=== PATIENT | female | born 1945 | race Caucasian/White ===

== ENCOUNTER 2016-11-01 16:23 | Inpatient (IN) | payer BC, MEDICARE ==
[~2016-11-01] VITALS: Ht 160 cm; Wt 74.6 kg
[~2016-11-01 16:23] MED LIST: CIPR250T30 PO; LEVO25TA4 PO; PROAIR HFA8.5 GM INH; TRAM50TA PO
[2016-11-01 16:57] LABS: BASO % 0 % (0-3); EOS % 0 % (0-3); HEMATOCRIT 41.7 % (36.0-47.0); HEMOGLOBIN 13.7 g/dL (12.0-15.5); LYMPH # 0.9 x10^3/uL (1.0-4.8); LYMPH % 4 % (24-48); MEAN CORPUSCULAR HEMOGLOBIN 29 pg (25-35); MEAN CORPUSCULAR HGB CONC 33 g/dL (31-37); MEAN CORPUSCULAR VOLUME 87 fL (79-100); MONO % 7 % (0-9); NEUT % 89 % (31-73); PLATELET COUNT 213 x10^3/uL (140-400); RED BLOOD COUNT 4.81 x10^6/uL (3.50-5.40); RED CELL DISTRIBUTION WIDTH 14.4 % (11.5-14.5); WHITE BLOOD COUNT 23.8 x10^3/uL (4.0-11.0)
[2016-11-01] MEDS ORDERED: IPRATRPIUM/ALBUTEROL 0.5/2.5MG 3 ML NEBU. NEB ONE (17:00)
[2016-11-01] MEDS ORDERED: ONDANSETRON PF 4 MG/2 ML VIAL. IV ONE (17:00)
[2016-11-01] MEDS ORDERED: IV NORMAL SALINE 1000ML BAG 1,000 ML IV ONE (17:00)
[2016-11-01] MEDS ORDERED: fentaNYL PF VIAL 100 MCG/2 ML VIAL IV ONE (17:00)
[2016-11-01 17:05] LABS: PROTHROMBIN TIME PATIENT 12.5 SEC (11.7-14.0)
[2016-11-01 17:14] LABS: CALCIUM 9.3 mg/dL (8.5-10.1); CREATININE 1.1 mg/dL (0.6-1.0); GFR 48.7; POTASSIUM 4.2 mmol/L (3.5-5.1)
[2016-11-01 17:20] LABS: ALBUMIN 4.1 g/dL (3.4-5.0); ALBUMIN/GLOBULIN RATIO 1.2 (1.0-1.7); MAGNESIUM 1.7 mg/dL (1.8-2.4); TOTAL BILIRUBIN 0.4 mg/dL (0.2-1.0); TOTAL PROTEIN 7.4 g/dL (6.4-8.2)
--- NOTE | 2016-11-01 18:43 | PHYS DOC ---
Past Medical History Past Medical History: Anemia, Bronchitis, COPD, Fibromyalgia, Hypothyroid, Unknown Additional Past Medical Histor: RDS, restless leg Past Surgical History: Hysterectomy, Tubal ligation, Other Additional Past Surgical Histo: Bladder sling, R ear x5, R elbow, L arm, L foot Alcohol Use: None Drug Use: None Adult General Chief Complaint Chief Complaint: NAUSEA/VOMITING/DIARRHA HPI HPI Patient is a 71 year old female presenting to the emergency department for evaluation of nausea vomiting and diarrhea that started earlier today. She is currently being treated for orchitis with antibiotics but she does not know which antibiotics for the past 4-5 days. She says that she was switched to a new antibiotic today and shortly after taking the new antibiotic is when the symptoms started. She denies any fevers chills shortness of breath or productive cough dysuria. Patient appears uncomfortable but she is in no obvious distress with normal vital signs except for her tachycardia at 110. Review of Systems Review of Systems Constitutional: Denies fever or chills [] Eyes: Denies change in visual acuity, redness, or eye pain [] HENT: + nasal congestion and sore throat [] Respiratory: Denies cough or shortness of breath [] Cardiovascular: No additional information not addressed in HPI [] GI: Denies abdominal pain. + nausea, vomiting, diarrhea [] : Denies dysuria or hematuria [] Musculoskeletal: Denies back pain or joint pain [] Integument: Denies rash or skin lesions [] Neurologic: Denies headache, focal weakness or sensory changes [] Current Medications Current Medications Current Medications Medications (Trade) Dose Ordered Sig/[facility] Start Time Stop Time Status Last Admin Dose Admin Albuterol/ Ipratropium (Duoneb) 3 ml 1X ONCE 11/01/16 17:00 11/01/16 17:01 DC Fentanyl Citrate (Fentanyl 2ml Vial) 50 mcg PRN Q2HR PRN 11/01/16 19:45 11/02/16 19:44 Levofloxacin/ Dextrose 100 ml @ 100 mls/hr 1X ONCE 11/01/16 20:00 11/01/16 20:59 DC Metronidazole 100 ml @ 100 mls/hr 1X ONCE 11/01/16 20:00 11/01/16 20:59 DC Ondansetron HCl (Zofran) 4 mg PRN Q8HRS PRN 11/01/16 19:45 11/02/16 19:44 Piperacillin Sod/ Tazobactam Sod 3.375 gm/Sodium Chloride 50 ml @ 100 mls/hr 1X ONCE 11/02/16 01:00 11/02/16 01:29 Potassium Chloride/Dextrose/ Sod Cl 1,000 ml @ 125 mls/hr 1X ONCE 11/01/16 20:30 11/02/16 04:29 Sodium Chloride 1,000 ml @ 1,000 mls/hr 1X ONCE 11/01/16 17:00 11/01/16 17:59 DC 11/01/16 17:09 1,000 MLS/HR Allergies Allergies Allergies Coded Allergies Type Severity Reaction Last Updated Verified oxycodone Adverse Reaction Severe Nausea and Vomiting 12/07/15 Yes Iodinated Contrast Media - IV Dye Adverse Reaction Intermediate Nausea and Vomiting 12/07/15 Yes Physical Exam Physical Exam Constitutional: Well developed, well nourished, no acute distress, non-toxic appearance. [] HENT: Normocephalic, atraumatic, bilateral external ears normal, oropharynx moist, no oral exudates, nose normal. [] Eyes: PERRLA, EOMI, conjunctiva normal, no discharge. [] Neck: Normal range of motion, no tenderness, supple, no stridor. [] Cardiovascular:Heart rate tachycardic with regular rhythm, no murmur [] Lungs & Thorax: Bilateral breath sounds clear to auscultation [] Abdomen: Bowel sounds normal, soft, no tenderness, no masses, no pulsatile masses. [] Skin: Warm, dry, no erythema, no rash. [] Back: No tenderness, no CVA tenderness. [] Extremities: No tenderness, no cyanosis, no clubbing, ROM intact, no edema. [] Neurologic: Alert and oriented X 3, normal motor function, normal sensory function, no focal deficits noted. [] Current Patient Data Vital Signs Vital Signs Date Time Temp Pulse Resp B/P (MAP) Pulse Ox O2 Delivery O2 Flow Rate FiO2 11/01/16 18:30 106 28 110/66 (81) 94 11/01/16 17:51 Room Air 11/01/16 16:25 98.4 98.4 Lab Values Laboratory Tests Test 11/01/16 16:45 White Blood Count 23.8 x10^3/uL (4.0-11.0) H Red Blood Count 4.81 x10^6/uL (3.50-5.40) Hemoglobin 13.7 g/dL (12.0-15.5) Hematocrit 41.7 % (36.0-47.0) Mean Corpuscular Volume 87 fL (79-100) Mean Corpuscular Hemoglobin 29 pg (25-35) Mean Corpuscular Hemoglobin Concent 33 g/dL (31-37) Red Cell Distribution Width 14.4 % (11.5-14.5) Platelet Count 213 x10^3/uL (140-400) Neutrophils (%) (Auto) 89 % (31-73) H Lymphocytes (%) (Auto) 4 % (24-48) L Monocytes (%) (Auto) 7 % (0-9) Eosinophils (%) (Auto) 0 % (0-3) Basophils (%) (Auto) 0 % (0-3) Neutrophils # (Auto) 21.2 x10^3uL (1.8-7.7) H Lymphocytes # (Auto) 0.9 x10^3/uL (1.0-4.8) L Monocytes # (Auto) 1.6 x10^3/uL (0.0-1.1) H Eosinophils # (Auto) 0.0 x10^3/uL (0.0-0.7) Basophils # (Auto) 0.0 x10^3/uL (0.0-0.2) Segmented Neutrophils % 58 % (35-66) Band Neutrophils % 29 % (0-9) H Lymphocytes % 7 % (24-48) L Monocytes % 6 % (0-10) Platelet Estimate Adequate (ADEQUATE) Prothrombin Time 12.5 SEC (11.7-14.0) Prothrombin Time INR 1.0 (0.8-1.1) PTT 24 SEC (24-38) Sodium Level 137 mmol/L (136-145) Potassium Level 4.2 mmol/L (3.5-5.1) Chloride Level 102 mmol/L (98-107) Carbon Dioxide Level 27 mmol/L (21-32) Anion Gap 8 (6-14) Blood Urea Nitrogen 15 mg/dL (7-20) Creatinine 1.1 mg/dL (0.6-1.0) H Estimated GFR (Cockcroft-Gault) 48.7 BUN/Creatinine Ratio 14 (6-20) Glucose Level 143 mg/dL (70-99) H Calcium Level 9.3 mg/dL (8.5-10.1) Magnesium Level 1.7 mg/dL (1.8-2.4) L Total Bilirubin 0.4 mg/dL (0.2-1.0) Aspartate Amino Transferase (AST) 43 U/L (15-37) H Alanine Aminotransferase (ALT) 41 U/L (14-59) Alkaline Phosphatase 111 U/L (46-116) Creatine Kinase 156 U/L (26-192) Troponin I Quantitative < 0.017 ng/mL (0.000-0.055) NJ-Lmx-C-Type Natriuretic Peptide 67 pg/mL (0-124) Total Protein 7.4 g/dL (6.4-8.2) Albumin 4.1 g/dL (3.4-5.0) Albumin/Globulin Ratio 1.2 (1.0-1.7) Lipase 225 U/L (73-393) Ethyl Alcohol Level < 10 mg/dL (0-10) Laboratory Tests 11/01/16 16:45 Laboratory Tests 11/01/16 16:45 Radiology/Procedures Radiology/Procedures PROCEDURE CT abdomen and pelvis without contrast HISTORY Generalized abdominal pain TECHNIQUE Exposure: One or more of the following individualized dose reduction techniques were utilized for this exam: 1. Automated exposure control. 2. Adjustment of the mA and/or kV according to patient size. 3. Use of iterative reconstruction technique. Helical noncontrast CT imaging of the abdomen and pelvis was acquired COMPARISON CT abdomen and pelvis March 03, 2013 FINDINGS Abdomen: Pulmonary emphysema lung bases. 3 millimeter right middle lobe nodule image 2 outside the field of view prior study. 2 millimeter nodule right middle lobe image 6 new from the prior exam. 3 millimeter right middle lobe nodule image 7 is stable. Hypodensity of the liver could be fatty. Mild distended renal pelves decreased on the prior exam. No nephroureterolithiasis. Adrenals, pancreas, spleen and gallbladder are unremarkable. No bowel obstruction or inflammation. 2 centimeter fatty density of the distal ileum at the pelvis likely a lipoma. Appendix is negative. Aorta and iliac artery calcified plaque. No abdominal fluid. Bones unremarkable. Pelvis: Hysterectomy small nodular density the vaginal cuff is stable abdominal significance given stability. Bladder, rectum and bones are unremarkable. No pelvic fluid. IMPRESSION 1. No acute process. 2. Small right middle lobe pulmonary nodules largest measuring 3 millimeters new from the prior exam. In a low risk patient no followup is needed, in a high risk patient follow-up CT chest in 12 months would be advised per Fleischner society guidelines. Electronically signed by: Trixie Mccann MD (November 01, 2016 20:57:40) DICTATED and SIGNED BY: TRIXIE MCCANN MD DATE: 11/01/162056 Course & Med Decision Making Course & Med Decision Making Patient with significantly elevated white blood cell count and bandemia and she is tachycardic sweating which she meets sepsis criteria. Worse is unclear at this time but she does have some abdominal pain on repeat exam in her epigastrium such she will get CT abdomen and pelvis. Her lung fluids and broad- spectrum antibiotics including Levaquin and Flagyl. Patient will be admitted in stable condition for further observation and treatment. Dragon Disclaimer Dragon Disclaimer This electronic medical record was generated, in whole or in part, using a voice recognition dictation system. Departure Departure Impression: Primary Impression: Sepsis Additional Impressions: Bandemia Gastroenteritis Disposition: ADMITTED INPATIENT Admitting Physician: Syed Mo Condition: IMPROVED Referrals: FLOYD FUNEZ MD (PCP) Problem Qualifiers SABRINA ZAMORA DO November 01, 2016 18:43
[2016-11-01 19:11] LABS: PLT ESTIMATE ADEQUATE (ADEQUATE)
[2016-11-01] MEDS ORDERED: ONDANSETRON PF 4 MG/2 ML VIAL. IV PRN (19:45)
[2016-11-01] MEDS ORDERED: POTASSIUM CL 20MEQ D5-0.45NACL 1,000 ML IV ONE (20:30)
--- NOTE | 2016-11-01 20:59 | RAD ---
PROCEDURE CT abdomen and pelvis without contrast HISTORY Generalized abdominal pain TECHNIQUE Exposure: One or more of the following individualized dose reduction techniques were utilized for this exam: 1. Automated exposure control. 2. Adjustment of the mA and/or kV according to patient size. 3. Use of iterative reconstruction technique. Helical noncontrast CT imaging of the abdomen and pelvis was acquired COMPARISON CT abdomen and pelvis March 03, 2013 FINDINGS Abdomen: Pulmonary emphysema lung bases. 3 millimeter right middle lobe nodule image 2 outside the field of view prior study. 2 millimeter nodule right middle lobe image 6 new from the prior exam. 3 millimeter right middle lobe nodule image 7 is stable. Hypodensity of the liver could be fatty. Mild distended renal pelves decreased on the prior exam. No nephroureterolithiasis. Adrenals, pancreas, spleen and gallbladder are unremarkable. No bowel obstruction or inflammation. 2 centimeter fatty density of the distal ileum at the pelvis likely a lipoma. Appendix is negative. Aorta and iliac artery calcified plaque. No abdominal fluid. Bones unremarkable. Pelvis: Hysterectomy small nodular density the vaginal cuff is stable abdominal significance given stability. Bladder, rectum and bones are unremarkable. No pelvic fluid. IMPRESSION 1. No acute process. 2. Small right middle lobe pulmonary nodules largest measuring 3 millimeters new from the prior exam. In a low risk patient no followup is needed, in a high risk patient follow-up CT chest in 12 months would be advised per Fleischner society guidelines. Electronically signed by: James Mccann MD (November 01, 2016 20:57:40)
--- NOTE | 2016-11-01 21:24 | ACF ---
Admission Forms Criteria SEPSIS and OTHER FEBRILE ILLNESS, W/O FOCAL INFECTION Clinical Indications for Admission to Inpatient Care ( Place 'X' for any and all applicable criteria): Admission is indicated for ANY ONE of the following (1)(2)(3)(4): [ ] I. Bacteremia [X]II. Suspected or identified specific infection requiring hospitalization (eg, meningitis, endocarditis) [ ]III. Hemodynamic instability [ ]IV. Altered mental status [ ]V. Failure or unavailability of outpatient antimicrobial treatment [ ]. Hypoxemia [ ]VII. Seizures [ ]VIII. High-risk febrile neutropenia [ ]IX. Need for parenteral antibiotic in patient who is likely to abuse vascular access device (eg, injection drug user) [A](7) [ ]X. Temperature greater than 104.9 degrees F (40.5 degrees C) (oral) [ ]XI. Inpatient admission required rather than observation care because of ANY ONE of the following: [ ]1) Specific infection identified that is too severe for outpatient treatment or observation care trial [ ]2) Metabolic disorder (eg, hypoglycemia, hyperglycemia, metabolic acidosis) that is severe or persistent [ ]3) Temperature greater than 103.1 degrees F (39.5 degrees C) ( oral) that is not responsive to observation care treatment [ ]4) IV fluid to replace significant ongoing (eg, for over 24 hours) losses (> 3 L/m2 per day) [ ]5) Supplemental oxygen or respiratory treatments for over 24 hours that is performable only in acute inpatient setting [ ]6) Parenteral nutrition regimen need that must be implemented on inpatient basis [ ]7) Strict or protective (eg, laminar flow) isolation [ ]8) Other condition, treatment or monitoring requiring inpatient admission Extended stay beyond goal length of stay may be needed for(1)(3) [ ]a) Sepsis or septic shock(22) [ ]b) Positive blood cultures [ ]c) Insufficient oral intake [ ]d) High-risk febrile neutropenia(29)(30) [ ]e) Continued fever and clinical instability [ ]f) Clinically active comorbid illness (e.g,heart failure, renal failure , diabetes) The original [employer] content created by [employer] has been revised. The portions of the content which have been revised are identified through the use of italic text or in bold, and [employer] has neither reviewed nor approved the modified material. All other unmodified content is copyright [facility]. Please see references footnoted in the original [facility] edition 2016 Admission Criteria Met?: Yes MIKE COOK November 01, 2016 21:24
[2016-11-01] MEDS: fentaNYL PF VIAL 100 MCG/2 ML VIAL IV PRN (21:58)
[2016-11-01 23:00] VITALS: BP 115/58
[2016-11-02] VITALS (7 sets, daily range): BP systolic 106–132; BP diastolic 54–79
[2016-11-02] MEDS ORDERED: ONDANSETRON PF 4 MG/2 ML VIAL. IV PRN (00:30)
[2016-11-02] MEDS ORDERED: hydrALAZINE 20 MG/ML VIAL. IVP PRN (00:30)
[2016-11-02] MEDS ORDERED: ALBUTEROL SULFATE 2.5 MG/3 ML NEBU. NEB PRN (00:30)
[2016-11-02] MEDS ORDERED: ACETAMINOPHEN 325 MG TABLET. PO PRN (00:30)
[2016-11-02] MEDS ORDERED: PIPERACILLIN/TAZOBACTAM 3.375 GM in IV NORMAL SALINE 50ML 50 ML IV ONE (01:00)
[2016-11-02] MEDS: fentaNYL PF VIAL 100 MCG/2 ML VIAL IV PRN ×2 (01:23→10:02)
--- NOTE | 2016-11-02 09:42 | RAD ---
Exam performed: One view chest. Indication: COUGH, SOA Date of Service: 11/01/2016 6:42 PM Comparison: None available. Single AP upright portable view chest findings: Cardiomediastinal silhouette is within limits of normal. No acute infiltrates, effusion or pneumothorax is detected. The bony structures are normal. Impression: No acute cardiopulmonary process is detected.
--- NOTE | 2016-11-02 10:46 | PDOC ---
Infectious Disease Note ROS ROS GEN: Denies fevers, chills, sweats HEENT: Denies blurred vision, sore throat CV: Denies chest pain RESP: Denies shortness of air, cough GI: Denies n/v/d NEURO: Denies confusion, dizziness MSK: Denies weakness, joint pain/swelling Vital Sign Vital Signs Vital Signs Date Time Temp Pulse Resp B/P (MAP) Pulse Ox O2 Delivery O2 Flow Rate FiO2 11/02/16 10:02 20 96 Room Air 11/02/16 07:00 96.8 83 106/63 (77) 96.8 Physical Exam PHYSICAL EXAM GENERAL: NAD, Alert HEENT: PERRL, OC/OP NECK: Supple, no JVD, no LN LUNGS: Clear HEART: S1S2, no gallop, no murmur ABD: Soft, NT, no organomegaly, no rebound EXT: No edema, no cyanosis [employer]: Alert, oriented x 3, no focal neurologic deficit SKIN: No rash IV: ok Labs Lab Laboratory Tests Test 11/01/16 16:45 White Blood Count 23.8 x10^3/uL (4.0-11.0) Red Blood Count 4.81 x10^6/uL (3.50-5.40) Hemoglobin 13.7 g/dL (12.0-15.5) Hematocrit 41.7 % (36.0-47.0) Mean Corpuscular Volume 87 fL (79-100) Mean Corpuscular Hemoglobin 29 pg (25-35) Mean Corpuscular Hemoglobin Concent 33 g/dL (31-37) Red Cell Distribution Width 14.4 % (11.5-14.5) Platelet Count 213 x10^3/uL (140-400) Neutrophils (%) (Auto) 89 % (31-73) Lymphocytes (%) (Auto) 4 % (24-48) Monocytes (%) (Auto) 7 % (0-9) Eosinophils (%) (Auto) 0 % (0-3) Basophils (%) (Auto) 0 % (0-3) Neutrophils # (Auto) 21.2 x10^3uL (1.8-7.7) Lymphocytes # (Auto) 0.9 x10^3/uL (1.0-4.8) Monocytes # (Auto) 1.6 x10^3/uL (0.0-1.1) Eosinophils # (Auto) 0.0 x10^3/uL (0.0-0.7) Basophils # (Auto) 0.0 x10^3/uL (0.0-0.2) Segmented Neutrophils % 58 % (35-66) Band Neutrophils % 29 % (0-9) Lymphocytes % 7 % (24-48) Monocytes % 6 % (0-10) Platelet Estimate Adequate (ADEQUATE) Prothrombin Time 12.5 SEC (11.7-14.0) Prothromb Time International Ratio 1.0 (0.8-1.1) Activated Partial Thromboplast Time 24 SEC (24-38) Sodium Level 137 mmol/L (136-145) Potassium Level 4.2 mmol/L (3.5-5.1) Chloride Level 102 mmol/L (98-107) Carbon Dioxide Level 27 mmol/L (21-32) Anion Gap 8 (6-14) Blood Urea Nitrogen 15 mg/dL (7-20) Creatinine 1.1 mg/dL (0.6-1.0) Estimated GFR (Cockcroft-Gault) 48.7 BUN/Creatinine Ratio 14 (6-20) Glucose Level 143 mg/dL (70-99) Calcium Level 9.3 mg/dL (8.5-10.1) Magnesium Level 1.7 mg/dL (1.8-2.4) Total Bilirubin 0.4 mg/dL (0.2-1.0) Aspartate Amino Transf (AST/SGOT) 43 U/L (15-37) Alanine Aminotransferase (ALT/SGPT) 41 U/L (14-59) Alkaline Phosphatase 111 U/L (46-116) Creatine Kinase 156 U/L (26-192) Troponin I Quantitative < 0.017 ng/mL (0.000-0.055) WV-Jnp-J-Type Natriuretic Peptide 67 pg/mL (0-124) Total Protein 7.4 g/dL (6.4-8.2) Albumin 4.1 g/dL (3.4-5.0) Albumin/Globulin Ratio 1.2 (1.0-1.7) Lipase 225 U/L (73-393) Ethyl Alcohol Level < 10 mg/dL (0-10) Objective Assessment N/V/D - likely C-diff given abx exposure. No bloody stools - no outside food Leukocytosis New lung nodules Tobacco abuse Plan Plan of Care F/u C-diff Begin po Vanc Probitoics F/u labs and cults Lung nodules per primary Thank you # [phone] ANTIONETTE ARTEAGA MD November 02, 2016 10:45
[2016-11-02] MEDS ORDERED: NON FORMULARY ITEM (Albuterol Sulfate (Proair Hfa Inhaler) 1 PUFF) INH PRN (11:15)
[2016-11-02] MEDS ORDERED: HYDROcodone/APAP 5/325MG 1 TAB TABLET PO PRN (11:15)
[2016-11-02] MEDS: VANCOMYCIN 125 MG/2.5 ML ORAL SOLUTION. PO SCH ×4 (11:16→20:58)
[2016-11-02] MEDS: LACTOBACILLUS ACIDOPH & BULGAR 1 TABLET. PO SCH ×2 (11:16→18:54)
[2016-11-02 11:28] LABS: BILIRUBIN,URINE NEGATIVE (NEG); GLUCOSE,URINE NEGATIVE (NEG); NITRITE,URINE NEGATIVE (NEG); PH,URINE 5.5; PROTEIN,URINE NEGATIVE (NEG-TRACE); UROBILINOGEN,URINE 0.2 mg/dL (0.2 mg/dL)
--- NOTE | 2016-11-02 11:32 | PDOC1 ---
History and Physical Date of Admission Date of Admission DATE: 11/02/16 TIME: 11:26 Identification/Chief Complaint Chief Complaint diarrhea Problems: Source Source: Chart review, Patient History of Present Illness History of Present Illness Ms. Alatorre, is a 71 year old female admit nausea vomiting and diarrhea. 24 hours, and symptoms now improved this AM from last night Had been given Cipro for bronchitis, about 5 days, but still coughing, she is now worried about mold exposure in her [facility] She stopped smoking 2 weeks ago due to cough and dyspnea PCP is Dr. Berger cough and dyspnea persist, she is hungry this AM Past Medical History Cardiovascular: HTN Pulmonary: Asthma Rheumatologic: No pertinent hx ENT: No pertinent hx Renal/: No pertinent hx Family History Family History: No Significant Social History Smoke: 1 pack per day ALCOHOL: rare Current Problem List Problem List Problems Medical Problems: (1) Bandemia Status: Acute (2) Gastroenteritis Status: Acute (3) Sepsis Status: Acute Problems: Current Medications Current Medications Current Medications Sodium Chloride 1,000 ml @ 1,000 mls/hr 1X ONCE IV Last administered on 17:09; Start 11/01/16 at 17:00; Stop 11/01/16 at 17:59; Status DC Albuterol/ Ipratropium (Duoneb) 3 ml 1X ONCE NEB ; Start 11/01/16 at 17:00; Stop 11/01/16 at 17:01; Status DC Ondansetron HCl (Zofran) 4 mg 1X ONCE IV Last administered on 11/01/16 17:09 ; Start 11/01/16 at 17:00; Stop 11/01/16 at 17:01; Status DC Fentanyl Citrate (Fentanyl 2ml Vial) 75 mcg 1X ONCE IV Last administered on 17:10; Start 11/01/16 at 17:00; Stop 11/01/16 at 17:01; Status DC Levofloxacin/ Dextrose 100 ml @ 100 mls/hr 1X ONCE IV Last administered on 21:51; Start 11/01/16 at 20:00; Stop 11/01/16 at 20:59; Status DC Metronidazole 100 ml @ 100 mls/hr 1X ONCE IV Last administered on 11/01/16 21:07; Start 11/01/16 at 20:00; Stop 11/01/16 at 20:59; Status DC Ondansetron HCl (Zofran) 4 mg PRN Q8HRS PRN IV NAUSEA/VOMITING Last administered on 11/02/16 01:22; Start 11/01/16 at 19:45; Stop 11/02/16 at 02:16 ; Status DC Fentanyl Citrate (Fentanyl 2ml Vial) 50 mcg PRN Q2HR PRN IV PAIN Last administered on 11/02/16 10:02; Start 11/01/16 at 19:45; Stop 11/02/16 at 19:44 Potassium Chloride/Dextrose/ Sod Cl 1,000 ml @ 125 mls/hr 1X ONCE IV Last administered on 11/02/16 00:39; Start 11/01/16 at 20:30; Stop 11/02/16 at 04:29 ; Status DC Piperacillin Sod/ Tazobactam Sod 3.375 gm/Sodium Chloride 50 ml @ 100 mls/hr 1X ONCE IV Last administered on 11/01/16 21:03; Start 11/02/16 at 01:00; Stop 11/02/16 at 02:07; Status DC Acetaminophen (Tylenol) 325 mg PRN Q6HRS PRN PO MILD PAIN / TEMP Last administered on 11/02/16 10:02; Start 11/02/16 at 00:30 Hydralazine HCl (Apresoline) 10 mg PRN Q4HRS PRN IVP ELEVATED BP, SEE COMMENTS ; Start 11/02/16 at 00:30 Ondansetron HCl (Zofran) 4 mg PRN Q8HRS PRN IV NAUSEA/VOMITING; Start 11/02/16 at 00:30 Albuterol Sulfate (Ventolin Neb Soln) 2.5 mg PRN Q4HRS PRN NEB SHORTNESS OF BREATH; Start 11/02/16 at 00:30 Vancomycin HCl 125 mg [id number] PO Last administered on 11/02/16 11:16; Start at 11:00 Lactobacillus Acidophilus (Bacid, Franchesca-Bid) 1 tab TIDWMEALS PO Last administered on 11/02/16 11:16; Start 11/02/16 at 12:00 Acetaminophen/ Hydrocodone Bitart (Lortab 5/325) 1 tab PRN Q4HRS PRN PO PAIN; Start 11/02/16 at 11:15 Ciprofloxacin (Cipro) 250 mg BID PO ; Start 11/02/16 at 21:00; Stop 11/02/16 at 21:00; Status DC Levothyroxine Sodium (Synthroid) 25 mcg DAILY06 PO ; Start 11/02/16 at 11:30 Tramadol HCl (Ultram) 50 mg BID PO ; Start 11/02/16 at 11:30 Non-Formulary Medication 1 puff PRN Q6HRS PRN INH SHORTNESS OF BREATH; Start at 11:15; Status UNV Levofloxacin (Levaquin) 750 mg DAILY06 PO ; Start 11/03/16 at 06:00; Status UNV Levofloxacin (Levaquin) 750 mg 1X ONCE PO ; Start 11/02/16 at 11:30; Stop 11/02 at 11:31; Status UNV Active Scripts Active Reported Cipro (Ciprofloxacin Hcl) 250 Mg Tablet 1 Tab PO BID Proair Hfa Inhaler (Albuterol Sulfate) 8.5 Gm Hfa.aer.ad 1 Puff INH PRN Q6HRS PRN Tramadol Hcl 50 Mg Tablet 1 Tab PO BID Levothyroxine Sodium 25 Mcg Tablet 1 Tab PO DAILY Allergies Allergies: Coded Allergies: oxycodone (Verified Adverse Reaction, Severe, Nausea and Vomiting, 12/07/15 ) Iodinated Contrast Media - IV Dye (Verified Adverse Reaction, Intermediate , Nausea and Vomiting, 12/07/15) ROS General: YES: Malaise, No: Chills, Night Sweats, Fatigue, Appetite, Other PSYCHOLOGICAL ROS: YES: Sleep disturbances, No: Anxiety, Behavioral Disorder, Concentration difficultie, Decreased libido , Depression, Disorientation, Hallucinations, Hostility, Irritablity, Memory difficulties, Mood Swings, Obsessive thoughts, Suicidal ideation, Other Eyes: No Blurry vision, No Decreased vision, No Double vision, No Dry eyes, No Eye Pain, No Itchy Eyes, No Loss of vision, No Photophobia, No Scotomata, No Uses contacts, No Uses glasses, No Other HEENT: YES: Heacaches, No: Visual Changes, Hearing change, Nasal congestion, Nasal discharge, Oral lesions, Sinus pain, Sore Throat, Epistaxis, Sneezing, Snoring, Tinnitus, Vertigo, Vocal changes, Other Respiratory: YES: Cough, SOB with excertion Cardiovascular: No Chest Pain, No Palpitations, No Orthopnea, No Paroxysmal Noc. Dyspnea, No Edema, No Lt Headedness, No Other Gastrointestinal: Yes Nausea, Yes Vomiting, Yes Diarrhea, No Abdominal Pain, No Constipation, No Melena, No Hematochezia, No Other Genitourinary: No Dysuria, No Frequency, No Incontinence, No Hematuria, No Retention, No Discharge, No Urgency, No Pain, No Flank Pain, No Other, No , No , No , No , No , No , No Musculoskeletal: Yes Joint Pain, No Gait Disturbance, No Joint Stiffness, No Joint Swelling, No Muscle Pain, No Muscular Weakness, No Pain In:, No Swelling In:, No Other Neurological: No Behavorial Changes, No Bowel/Bladder ControlChng, No Confusion , No Dizziness, No Gait Disturbance, No Headaches, No Impaired Coord/balance, No Memory Loss, No Numbness/Tingling, No Seizures, No Speech Problems, No Tremors, No Visual Changes, No Weakness, No Other Skin: No Dry Skin, No Eczema, No Hair Changes, No Lumps, No Mole Changes, No Mottling, No Nail Changes, No Pruritus, No Rash, No Skin Lesion Changes, No Other, No Acne Physical Exam General: Alert, Oriented X3, Cooperative, No acute distress HEENT: Atraumatic, PERRLA, EOMI Lungs: Other (limit volume, dull bases, end rales, no wheeze) Heart: S1S2, no murmurs Abdomen: Normal bowel sounds, Soft Rectal Exam: not examined Extremities: No clubbing, No edema Skin: No rashes Neuro: Normal speech, Normal tone, Cranial nerves 3-12 NL Psych/Mental Status: Mental status NL Vitals Vitals Vital Signs Date Time Temp Pulse Resp B/P (MAP) Pulse Ox O2 Delivery O2 Flow Rate FiO2 11/02/16 10:02 20 96 Room Air 11/02/16 07:00 96.8 83 106/63 (77) 96.8 Labs Labs Laboratory Tests Test 11/01/16 16:45 White Blood Count 23.8 x10^3/uL (4.0-11.0) Red Blood Count 4.81 x10^6/uL (3.50-5.40) Hemoglobin 13.7 g/dL (12.0-15.5) Hematocrit 41.7 % (36.0-47.0) Mean Corpuscular Volume 87 fL (79-100) Mean Corpuscular Hemoglobin 29 pg (25-35) Mean Corpuscular Hemoglobin Concent 33 g/dL (31-37) Red Cell Distribution Width 14.4 % (11.5-14.5) Platelet Count 213 x10^3/uL (140-400) Neutrophils (%) (Auto) 89 % (31-73) Lymphocytes (%) (Auto) 4 % (24-48) Monocytes (%) (Auto) 7 % (0-9) Eosinophils (%) (Auto) 0 % (0-3) Basophils (%) (Auto) 0 % (0-3) Neutrophils # (Auto) 21.2 x10^3uL (1.8-7.7) Lymphocytes # (Auto) 0.9 x10^3/uL (1.0-4.8) Monocytes # (Auto) 1.6 x10^3/uL (0.0-1.1) Eosinophils # (Auto) 0.0 x10^3/uL (0.0-0.7) Basophils # (Auto) 0.0 x10^3/uL (0.0-0.2) Segmented Neutrophils % 58 % (35-66) Band Neutrophils % 29 % (0-9) Lymphocytes % 7 % (24-48) Monocytes % 6 % (0-10) Platelet Estimate Adequate (ADEQUATE) Prothrombin Time 12.5 SEC (11.7-14.0) Prothromb Time International Ratio 1.0 (0.8-1.1) Activated Partial Thromboplast Time 24 SEC (24-38) Sodium Level 137 mmol/L (136-145) Potassium Level 4.2 mmol/L (3.5-5.1) Chloride Level 102 mmol/L (98-107) Carbon Dioxide Level 27 mmol/L (21-32) Anion Gap 8 (6-14) Blood Urea Nitrogen 15 mg/dL (7-20) Creatinine 1.1 mg/dL (0.6-1.0) Estimated GFR (Cockcroft-Gault) 48.7 BUN/Creatinine Ratio 14 (6-20) Glucose Level 143 mg/dL (70-99) Calcium Level 9.3 mg/dL (8.5-10.1) Magnesium Level 1.7 mg/dL (1.8-2.4) Total Bilirubin 0.4 mg/dL (0.2-1.0) Aspartate Amino Transf (AST/SGOT) 43 U/L (15-37) Alanine Aminotransferase (ALT/SGPT) 41 U/L (14-59) Alkaline Phosphatase 111 U/L (46-116) Creatine Kinase 156 U/L (26-192) Troponin I Quantitative < 0.017 ng/mL (0.000-0.055) YR-Tml-S-Type Natriuretic Peptide 67 pg/mL (0-124) Total Protein 7.4 g/dL (6.4-8.2) Albumin 4.1 g/dL (3.4-5.0) Albumin/Globulin Ratio 1.2 (1.0-1.7) Lipase 225 U/L (73-393) Ethyl Alcohol Level < 10 mg/dL (0-10) Laboratory Tests Test 11/01/16 16:45 White Blood Count 23.8 x10^3/uL (4.0-11.0) Red Blood Count 4.81 x10^6/uL (3.50-5.40) Hemoglobin 13.7 g/dL (12.0-15.5) Hematocrit 41.7 % (36.0-47.0) Mean Corpuscular Volume 87 fL (79-100) Mean Corpuscular Hemoglobin 29 pg (25-35) Mean Corpuscular Hemoglobin Concent 33 g/dL (31-37) Red Cell Distribution Width 14.4 % (11.5-14.5) Platelet Count 213 x10^3/uL (140-400) Neutrophils (%) (Auto) 89 % (31-73) Lymphocytes (%) (Auto) 4 % (24-48) Monocytes (%) (Auto) 7 % (0-9) Eosinophils (%) (Auto) 0 % (0-3) Basophils (%) (Auto) 0 % (0-3) Neutrophils # (Auto) 21.2 x10^3uL (1.8-7.7) Lymphocytes # (Auto) 0.9 x10^3/uL (1.0-4.8) Monocytes # (Auto) 1.6 x10^3/uL (0.0-1.1) Eosinophils # (Auto) 0.0 x10^3/uL (0.0-0.7) Basophils # (Auto) 0.0 x10^3/uL (0.0-0.2) Segmented Neutrophils % 58 % (35-66) Band Neutrophils % 29 % (0-9) Lymphocytes % 7 % (24-48) Monocytes % 6 % (0-10) Platelet Estimate Adequate (ADEQUATE) Prothrombin Time 12.5 SEC (11.7-14.0) Prothromb Time International Ratio 1.0 (0.8-1.1) Activated Partial Thromboplast Time 24 SEC (24-38) Sodium Level 137 mmol/L (136-145) Potassium Level 4.2 mmol/L (3.5-5.1) Chloride Level 102 mmol/L (98-107) Carbon Dioxide Level 27 mmol/L (21-32) Anion Gap 8 (6-14) Blood Urea Nitrogen 15 mg/dL (7-20) Creatinine 1.1 mg/dL (0.6-1.0) Estimated GFR (Cockcroft-Gault) 48.7 BUN/Creatinine Ratio 14 (6-20) Glucose Level 143 mg/dL (70-99) Calcium Level 9.3 mg/dL (8.5-10.1) Magnesium Level 1.7 mg/dL (1.8-2.4) Total Bilirubin 0.4 mg/dL (0.2-1.0) Aspartate Amino Transf (AST/SGOT) 43 U/L (15-37) Alanine Aminotransferase (ALT/SGPT) 41 U/L (14-59) Alkaline Phosphatase 111 U/L (46-116) Creatine Kinase 156 U/L (26-192) Troponin I Quantitative < 0.017 ng/mL (0.000-0.055) MF-Cfm-Z-Type Natriuretic Peptide 67 pg/mL (0-124) Total Protein 7.4 g/dL (6.4-8.2) Albumin 4.1 g/dL (3.4-5.0) Albumin/Globulin Ratio 1.2 (1.0-1.7) Lipase 225 U/L (73-393) Ethyl Alcohol Level < 10 mg/dL (0-10) VTE Prophylaxis Ordered VTE Prophylaxis Devices: No VTE Pharmacological Prophylaxi: Yes Assessment/Plan Assessment/Plan Diarrhea, with nausea and vomiting Sepsis, c. diff likely, sample sent, ID following bronchitis, lifetime smoker, possible obstructive disease, cont abx treatment for bronchits that was started outpatient, consult PULM to follow pt is worried about Mold exposure, and requested that I test her for this tobaccoism, has stopped as she has felt ill asthma, albuterol FITO HAGEN MD November 02, 2016 11:32
[2016-11-02 11:59] LABS: RBC,URINE 0 /HPF (0-2)
[2016-11-02 12:00] LABS: BACTERIA,URINE 0 /HPF (0-FEW); SQUAMOUS EPITHELIAL CELL,UR FEW /LPF; WBC,URINE 0 /HPF (0-4)
[2016-11-02] MEDS: traMADol 50 MG TABLET PO SCH ×2 (13:17→20:58)
[2016-11-02] MEDS: ENOXAPARIN 40 MG/0.4 ML SYRINGE. SQ SCH (13:18)
[2016-11-02] MEDS: LEVOTHYROXINE 25 MCG TABLET. PO SCH (13:22)
--- NOTE | 2016-11-02 14:37 | PDOC ---
Provider Note Provider Note dictated BRENDAN SOTO MD November 02, 2016 14:37
--- NOTE | 2016-11-02 15:03 | CONS ---
DATE OF CONSULTATION: 11/01/2016 ATTENDING PHYSICIAN: Dr. Taylor. REASON FOR CONSULTATION: Abnormal CT of chest and tiny lung nodule. HISTORY OF PRESENT ILLNESS: The patient is a 71-year-old female who has been a smoker since age 16. She did quit 2 weeks ago. She presented to the hospital with gastroenteritis with vomiting and diarrhea lasting past 24 hours. She states she was placed on recent antibiotic, Cipro, for bronchitis. She also was worried about some mold exposure in a senior high-rise apartment. As a result, CT abdomen was performed which was actually for workup of her gastroenteritis, and there were some tiny nodules seen in the right middle lobe; 3 mm, another one 2 mm, and another one 6 mm. I have been asked to see her for further evaluation. She has no hemoptysis, no weight loss. She has no known cancers. She is motivated to quit cigarettes. PAST MEDICAL HISTORY: History of hypertension, history of suspected COPD with ongoing tobaccoism, just quit recently. PAST SURGICAL HISTORY: No recent surgeries. ALLERGIES: IV DYE AND OXYCODONE. REVIEW OF SYSTEMS: Twelve-point system obtained. Pertinent positives are discussed in my history of present illness, otherwise noncontributory. All systems that were negative were reviewed as well. MEDICATIONS: All reviewed as listed in the MRAD including DuoNebs. SOCIAL HISTORY: Smoker since age 16. Quit 2 weeks ago. PHYSICAL EXAMINATION: VITAL SIGNS: Stable. Pulse oximetry is 93% on room air. NECK: Supple. LUNGS: Clear. CARDIOVASCULAR: Regular rate and rhythm. ABDOMEN: Soft, nontender. EXTREMITIES: No pitting edema. LABORATORY DATA: Reviewed. White cell count 23.8, hemoglobin 13.7, and platelets are 213. BUN 15, creatinine 1.1. IMPRESSION: 1. Tiny 2-6 mm nodule in the right middle lobe. This is a patient who has been a smoker since age 16. These nodules are too small and could be inflammatory. However, with heavy tobaccoism, I would recommend repeating a CT chest in 6 months. Since these nodules were seen on the CT abdomen and pelvis, I will do a full CT chest today. 2. Long history of tobacco use, suspect underlying chronic obstructive pulmonary disease. 3. Suspected antibiotic-associated diarrhea. RECOMMENDATIONS: 1. Obtain full CT chest without contrast. 2. If there are no large-sized nodules on CT chest, then I would recommend to repeat CT chest in 6 months. 3. I have given my office number. She can do the CT chest either through her primary care or call my office for a followup in [address] chest at that time. 4. Smoking cessation counseling provided. 5. Continue present bronchodilators. 6. Continue hydration. 7. We will follow along with you. BRENDAN SOTO MD DR: GLENDY/robert JOB#: [id number] / [id number]
[2016-11-02] MEDS: IPRATRPIUM/ALBUTEROL 0.5/2.5MG 3 ML NEBU. NEB SCH ×2 (15:05→19:51)
--- NOTE | 2016-11-02 16:40 | RAD ---
Indication: Pulmonary nodule. Axial imaging through the chest was performed without contrast. Comparison is made with CT abdomen study from 1 day earlier. No axillary lymphadenopathy is detected. Hilar and mediastinal evaluation is limited without intravenous contrast. There appears to be a lymph node in the paratracheal location measuring approximately 19 x 12 mm. No pericardial or pleural fluid is identified. Parenchymal evaluation demonstrates mild centrilobular emphysematous changes. There is a 5 mm nodule in the anterior portion of the right upper lobe, image 24. Tiny nodules in the lateral portion of the right middle lobe are noted and described on yesterday's exam, largest approximately 3 to 4 mm. No other nodules are seen Impression: 1. Right upper lobe and right middle lobe nodules, all measuring less than 6 mm in size. In a low-risk patient, no further follow-up is needed. In a high-risk patient, follow-up CT could be performed in 12 months per Fleischner Society 2017 guidelines. Note is also made of an indeterminate right paratracheal lymph node. PQRS Compliance Statement: One or more of the following individualized dose reduction techniques were utilized for this examination: 1. Automated exposure control 2. Adjustment of the mA and/or kV according to patient size 3. Use of iterative reconstruction technique
[2016-11-02] MEDS ORDERED: CIPROFLOXACIN HCL 250 MG TABLET. PO SCH (21:00)
[2016-11-03 03:00] VITALS: BP 105/70
[2016-11-03 05:08] LABS: BASO % 0 % (0-3); EOS % 0 % (0-3); HEMATOCRIT 32.2 % (36.0-47.0); LYMPH # 2.1 x10^3/uL (1.0-4.8); LYMPH % 30 % (24-48); MEAN CORPUSCULAR HEMOGLOBIN 29 pg (25-35); MEAN CORPUSCULAR HGB CONC 34 g/dL (31-37); MEAN CORPUSCULAR VOLUME 86 fL (79-100); MONO % 7 % (0-9); NEUT % 63 % (31-73); PLATELET COUNT 150 x10^3/uL (140-400); RED BLOOD COUNT 3.73 x10^6/uL (3.50-5.40); RED CELL DISTRIBUTION WIDTH 14.1 % (11.5-14.5); WHITE BLOOD COUNT 6.9 x10^3/uL (4.0-11.0)
--- NOTE | 2016-11-03 05:35 | CONS ---
DATE OF CONSULTATION: LOCATION: The patient is in room 528. REQUESTING PHYSICIAN: Dr. Mo. REASON FOR CONSULTATION: Questionable sepsis. HISTORY OF PRESENT ILLNESS: The patient is a pleasant 71-year-old female with a history of bronchitis and COPD, who is followed in the outpatient setting by Dr. Berger. She reports having an area on her right leg that was being treated with blue capsules for 4-5 days. She followed up with Dr. Berger this past Sunday or so and was complaining that the antibiotics were not helping her with her cough that she had been having for several weeks. She states she was prescribed an antibiotic, got the antibiotic filled and took it yesterday approximately 10:00 in the morning and about 1:00-1:30 yesterday afternoon, she became violently ill. She had nausea and vomiting, denies any hemoptysis and then had excessive loose stools up to 20, if not more. No blood in her stool. There is a foul odor associated with her stool. No bloating, but she became acutely dehydrated and felt dizzy and called 911. She was brought to the [facility] on 11/01/2016. She has been afebrile. White blood cell count was elevated at 23.8. She had 29% bands. Creatinine was 1.1. She underwent a CT scan of her abdomen and pelvis without contrast that showed no acute process, but has small right middle lobe pulmonary nodules. She was given single doses of Zosyn, levofloxacin and metronidazole and admitted to the hospital. Currently, the patient is sitting upright on the side of the bed, states she is feeling some better. She actually has a little bit of appetite. She has no gross headaches, no sinus issues, still has issue with mild cough that is nonproductive. States she has not smoked in 2 weeks. Denies any dysuria, frequency or urgency. Her leg wound is improving. PAST MEDICAL HISTORY: Positive for anemia, bronchitis, COPD, fibromyalgia, hypothyroidism, urinary incontinence, restless legs, ____ RDS. PAST SURGICAL HISTORY: Positive for hysterectomy, tubal ligation, bladder sling, right ear, right elbow, left arm, left foot. REVIEW OF SYSTEMS: Otherwise negative except for as mentioned above. ALLERGIES: LISTED IV DYE AND OXYCODONE. SOCIAL HISTORY: Says she has not smoked again for 2 weeks. Denies any ill contacts. Denies eating at any other places. No alcohol. FAMILY HISTORY: Negative. CURRENT MEDICATIONS: Again, levofloxacin, metronidazole, Zosyn x 1, ____ Ventolin, hydralazine. Other meds are available and have been reviewed in the chart. PHYSICAL EXAMINATION: VITAL SIGNS: She is afebrile, temperature 96.8, pulse 83, respirations 20, blood pressure 106/63, satting 96% on room air. CONSTITUTIONAL: She is alert, cooperative. She is sitting upright in bed. She is hard of hearing. She has a hearing aid. HEENT: Pupils are equal and reactive with normal conjunctivae. Oral cavity, pharynx is clear. NECK: Supple, no JVD. LUNGS: Without wheeze. HEART: S1, S2. ABDOMEN: Soft, nontender, nondistended, positive bowel sounds. EXTREMITIES: No clubbing or cyanosis. No gross edema. SKIN: Warm to touch without signs of rash. No signs of any cellulitis. On the right lower extremity, she has some resolving small superficial ____ areas that do not look actively infected. NEUROLOGIC: She is nonfocal and appropriate, moves all extremities. PSYCHIATRIC: Affect is pleasant. LABORATORY DATA: White count 23.8, hemoglobin 13.7, platelets of 213, 29 bands, 58 segs. Creatinine 1.1, glucose 143, AST 43, ALT 41. Normal troponin. CT scan reviewed in the history of present illness. IMPRESSION: 1. Nausea, vomiting, diarrhea, likely Clostridium difficile given her antibiotic exposure. It sounds like she has clindamycin given the blue capsules and a dose of levofloxacin. She has not had any bloody stools to suggest potential Shigella type organism and she has not had any outside food to suggest a potential food poisoning type situation. 2. Leukocytosis. 3. New lung nodules. 4. Tobacco abuse. RECOMMENDATIONS: We will follow up on the C. diff that has been ordered. We will begin oral vancomycin as well as probiotics. We will follow up on labs and cultures and follow up on pulmonary nodules per primary. Thank you for allowing me to participate in this patient's care. If you have any questions, please do not hesitate to contact me. ANTIONETTE ARTEAGA MD DR: NOEL/robert JOB#: [id number] / [id number]
[2016-11-03 05:37] LABS: CREATININE 0.8 mg/dL (0.6-1.0); GFR 70.3; POTASSIUM 3.6 mmol/L (3.5-5.1)
[2016-11-03] MEDS: LEVOTHYROXINE 25 MCG TABLET. PO SCH (06:29)
[2016-11-03 07:00] VITALS: BP 113/68
[2016-11-03] MEDS: IPRATRPIUM/ALBUTEROL 0.5/2.5MG 3 ML NEBU. NEB SCH ×2 (07:35→11:05)
[2016-11-03] MEDS: LACTOBACILLUS ACIDOPH & BULGAR 1 TABLET. PO SCH ×2 (08:25→11:53)
[2016-11-03] MEDS: traMADol 50 MG TABLET PO SCH (08:26)
[2016-11-03] MEDS: VANCOMYCIN 125 MG/2.5 ML ORAL SOLUTION. PO SCH (08:28)
--- NOTE | 2016-11-03 08:52 | PDOC ---
Infectious Disease Note Subjective Subjective Doing well and wants to go home N/V/D better ROS ROS GEN: Denies fevers, chills, sweats HEENT: Denies blurred vision, sore throat CV: Denies chest pain RESP: Denies shortness of air, cough GI: Denies n/v/d NEURO: Denies confusion, dizziness MSK: Denies weakness, joint pain/swelling Vital Sign Vital Signs Vital Signs Date Time Temp Pulse Resp B/P (MAP) Pulse Ox O2 Delivery O2 Flow Rate FiO2 11/03/16 08:26 Room Air 11/03/16 07:36 96 11/03/16 07:00 97.9 97 17 113/68 (83) 97.9 Physical Exam PHYSICAL EXAM GENERAL: NAD, Alert. Looks well HEENT: PERRL, OC/OP - clear NECK: Supple, no JVD, no LN LUNGS: Clear HEART: S1S2, no gallop, no murmur ABD: Soft, NT, no organomegaly, no rebound EXT: No edema, no cyanosis. leg ok HIGH PRESSURE FIRER: Alert, oriented x 3, no focal neurologic deficit SKIN: No rash IV: ok Labs Lab Laboratory Tests Test 11/02/16 10:10 11/02/16 10:11 11/03/16 04:40 Urine Collection Type Unknown Urine Color Yellow Urine Clarity Clear Urine pH 5.5 Urine Specific Dickinson 1.010 Urine Protein Negative mg/dL (NEG-TRACE) Urine Glucose (UA) Negative mg/dL (NEG) Urine Ketones (Stick) Negative mg/dL (NEG) Urine Blood Negative (NEG) Urine Nitrite Negative (NEG) Urine Bilirubin Negative (NEG) Urine Urobilinogen Dipstick 0.2 mg/dL (0.2 mg/dL) Urine Leukocyte Esterase Negative (NEG) Urine RBC 0 /HPF (0-2) Urine WBC 0 /HPF (0-4) Urine Squamous Epithelial Cells Few /LPF Urine Bacteria 0 /HPF (0-FEW) Urine Mucus Mod /LPF Clostridium difficile Toxin (PCR) Negative (Negative) White Blood Count 6.9 x10^3/uL (4.0-11.0) Red Blood Count 3.73 x10^6/uL (3.50-5.40) Hemoglobin 11.0 g/dL (12.0-15.5) Hematocrit 32.2 % (36.0-47.0) Mean Corpuscular Volume 86 fL (79-100) Mean Corpuscular Hemoglobin 29 pg (25-35) Mean Corpuscular Hemoglobin Concent 34 g/dL (31-37) Red Cell Distribution Width 14.1 % (11.5-14.5) Platelet Count 150 x10^3/uL (140-400) Neutrophils (%) (Auto) 63 % (31-73) Lymphocytes (%) (Auto) 30 % (24-48) Monocytes (%) (Auto) 7 % (0-9) Eosinophils (%) (Auto) 0 % (0-3) Basophils (%) (Auto) 0 % (0-3) Neutrophils # (Auto) 4.3 x10^3uL (1.8-7.7) Lymphocytes # (Auto) 2.1 x10^3/uL (1.0-4.8) Monocytes # (Auto) 0.5 x10^3/uL (0.0-1.1) Eosinophils # (Auto) 0.0 x10^3/uL (0.0-0.7) Basophils # (Auto) 0.0 x10^3/uL (0.0-0.2) Sodium Level 140 mmol/L (136-145) Potassium Level 3.6 mmol/L (3.5-5.1) Chloride Level 107 mmol/L (98-107) Carbon Dioxide Level 25 mmol/L (21-32) Anion Gap 8 (6-14) Blood Urea Nitrogen 8 mg/dL (7-20) Creatinine 0.8 mg/dL (0.6-1.0) Estimated GFR (Cockcroft-Gault) 70.3 Glucose Level 116 mg/dL (70-99) Calcium Level 8.0 mg/dL (8.5-10.1) Objective Assessment N/V/D - ? viral gastroenteris No bloody stools - no outside food. rapid recovery Leukocytosis - resolved New lung nodules - eval by Dr. Hair Tobacco abuse Plan Plan of Care With rapid recovery unlikely bacterial in origin. Would d/c all abx Ok to d/c home d/c po Vanc Can cont [employer] ANTIONETTE ARTEAGA MD November 03, 2016 08:52
[2016-11-03 11:00] VITALS: BP 117/69
[2016-11-03] MEDS ORDERED: ATROVENT HFA12.9 GM IH (11:18)
--- NOTE | 2016-11-03 11:23 | PDOC3 ---
Discharge Summary Visit Information Date of Admission: November 01, 2016 Date of Discharge: November 03, 2016 Admitting Diagnosis: diarrhea Final Diagnosis Diarrhea, with nausea and vomiting, viral enteritis, SIRS pos on admit, vital GI sepsis c. diff neg bronchitis, lifetime smoker, tobaccoism, asthma, albuterol Problems Medical Problems: (1) Bandemia Status: Acute (2) Gastroenteritis Status: Acute (3) Sepsis Status: Acute Brief Hospital Course Allergies Allergies Coded Allergies Type Severity Reaction Last Updated Verified oxycodone Adverse Reaction Severe Nausea and Vomiting 12/07/15 Yes Iodinated Contrast Media - IV Dye Adverse Reaction Intermediate Nausea and Vomiting 12/07/15 Yes Vital Signs Vital Signs Date Time Temp Pulse Resp B/P (MAP) Pulse Ox O2 Delivery O2 Flow Rate FiO2 11/03/16 11:06 Room Air 11/03/16 07:36 96 11/03/16 07:00 97.9 97 17 113/68 (83) 97.9 Lab Results Laboratory Tests Test 11/01/16 16:45 11/02/16 10:10 11/02/16 10:11 11/03/16 04:40 White Blood Count 23.8 x10^3/uL (4.0-11.0) 6.9 x10^3/uL (4.0-11.0) Red Blood Count 4.81 x10^6/uL (3.50-5.40) 3.73 x10^6/uL (3.50-5.40) Hemoglobin 13.7 g/dL (12.0-15.5) 11.0 g/dL (12.0-15.5) Hematocrit 41.7 % (36.0-47.0) 32.2 % (36.0-47.0) Mean Corpuscular Volume 87 fL (79-100) 86 fL (79-100) Mean Corpuscular Hemoglobin 29 pg (25-35) 29 pg (25-35) Mean Corpuscular Hemoglobin Concent 33 g/dL (31-37) 34 g/dL (31-37) Red Cell Distribution Width 14.4 % (11.5-14.5) 14.1 % (11.5-14.5) Platelet Count 213 x10^3/uL (140-400) 150 x10^3/uL (140-400) Neutrophils (%) (Auto) 89 % (31-73) 63 % (31-73) Lymphocytes (%) (Auto) 4 % (24-48) 30 % (24-48) Monocytes (%) (Auto) 7 % (0-9) 7 % (0-9) Eosinophils (%) (Auto) 0 % (0-3) 0 % (0-3) Basophils (%) (Auto) 0 % (0-3) 0 % (0-3) Neutrophils # (Auto) 21.2 x10^3uL (1.8-7.7) 4.3 x10^3uL (1.8-7.7) Lymphocytes # (Auto) 0.9 x10^3/uL (1.0-4.8) 2.1 x10^3/uL (1.0-4.8) Monocytes # (Auto) 1.6 x10^3/uL (0.0-1.1) 0.5 x10^3/uL (0.0-1.1) Eosinophils # (Auto) 0.0 x10^3/uL (0.0-0.7) 0.0 x10^3/uL (0.0-0.7) Basophils # (Auto) 0.0 x10^3/uL (0.0-0.2) 0.0 x10^3/uL (0.0-0.2) Segmented Neutrophils % 58 % (35-66) Band Neutrophils % 29 % (0-9) Lymphocytes % 7 % (24-48) Monocytes % 6 % (0-10) Platelet Estimate Adequate (ADEQUATE) Prothrombin Time 12.5 SEC (11.7-14.0) Prothromb Time International Ratio 1.0 (0.8-1.1) Activated Partial Thromboplast Time 24 SEC (24-38) Sodium Level 137 mmol/L (136-145) 140 mmol/L (136-145) Potassium Level 4.2 mmol/L (3.5-5.1) 3.6 mmol/L (3.5-5.1) Chloride Level 102 mmol/L (98-107) 107 mmol/L (98-107) Carbon Dioxide Level 27 mmol/L (21-32) 25 mmol/L (21-32) Anion Gap 8 (6-14) 8 (6-14) Blood Urea Nitrogen 15 mg/dL (7-20) 8 mg/dL (7-20) Creatinine 1.1 mg/dL (0.6-1.0) 0.8 mg/dL (0.6-1.0) Estimated GFR (Cockcroft-Gault) 48.7 70.3 BUN/Creatinine Ratio 14 (6-20) Glucose Level 143 mg/dL (70-99) 116 mg/dL (70-99) Calcium Level 9.3 mg/dL (8.5-10.1) 8.0 mg/dL (8.5-10.1) Magnesium Level 1.7 mg/dL (1.8-2.4) Total Bilirubin 0.4 mg/dL (0.2-1.0) Aspartate Amino Transf (AST/SGOT) 43 U/L (15-37) Alanine Aminotransferase (ALT/SGPT) 41 U/L (14-59) Alkaline Phosphatase 111 U/L (46-116) Creatine Kinase 156 U/L (26-192) Troponin I Quantitative < 0.017 ng/mL (0.000-0.055) FW-Emx-T-Type Natriuretic Peptide 67 pg/mL (0-124) Total Protein 7.4 g/dL (6.4-8.2) Albumin 4.1 g/dL (3.4-5.0) Albumin/Globulin Ratio 1.2 (1.0-1.7) Lipase 225 U/L (73-393) Ethyl Alcohol Level < 10 mg/dL (0-10) Urine Collection Type Unknown Urine Color Yellow Urine Clarity Clear Urine pH 5.5 Urine Specific [place] 1.010 Urine Protein Negative mg/dL (NEG-TRACE) Urine Glucose (UA) Negative mg/dL (NEG) Urine Ketones (Stick) Negative mg/dL (NEG) Urine Blood Negative (NEG) Urine Nitrite Negative (NEG) Urine Bilirubin Negative (NEG) Urine Urobilinogen Dipstick 0.2 mg/dL (0.2 mg/dL) Urine Leukocyte Esterase Negative (NEG) Urine RBC 0 /HPF (0-2) Urine WBC 0 /HPF (0-4) Urine Squamous Epithelial Cells Few /LPF Urine Bacteria 0 /HPF (0-FEW) Urine Mucus Mod /LPF Clostridium difficile Toxin (PCR) Negative (Negative) Laboratory Tests Test 5/12/17 04:40 White Blood Count 6.9 x10^3/uL (4.0-11.0) Red Blood Count 3.73 x10^6/uL (3.50-5.40) Hemoglobin 11.0 g/dL (12.0-15.5) Hematocrit 32.2 % (36.0-47.0) Mean Corpuscular Volume 86 fL (79-100) Mean Corpuscular Hemoglobin 29 pg (25-35) Mean Corpuscular Hemoglobin Concent 34 g/dL (31-37) Red Cell Distribution Width 14.1 % (11.5-14.5) Platelet Count 150 x10^3/uL (140-400) Neutrophils (%) (Auto) 63 % (31-73) Lymphocytes (%) (Auto) 30 % (24-48) Monocytes (%) (Auto) 7 % (0-9) Eosinophils (%) (Auto) 0 % (0-3) Basophils (%) (Auto) 0 % (0-3) Neutrophils # (Auto) 4.3 x10^3uL (1.8-7.7) Lymphocytes # (Auto) 2.1 x10^3/uL (1.0-4.8) Monocytes # (Auto) 0.5 x10^3/uL (0.0-1.1) Eosinophils # (Auto) 0.0 x10^3/uL (0.0-0.7) Basophils # (Auto) 0.0 x10^3/uL (0.0-0.2) Sodium Level 140 mmol/L (136-145) Potassium Level 3.6 mmol/L (3.5-5.1) Chloride Level 107 mmol/L (98-107) Carbon Dioxide Level 25 mmol/L (21-32) Anion Gap 8 (6-14) Blood Urea Nitrogen 8 mg/dL (7-20) Creatinine 0.8 mg/dL (0.6-1.0) Estimated GFR (Cockcroft-Gault) 70.3 Glucose Level 116 mg/dL (70-99) Calcium Level 8.0 mg/dL (8.5-10.1) Brief Hospital Course Ms. Alatorre is a 71 old female, bronchitis as outpatient, was no quinolone came to ER for distress and diarrhea, isolated for c. diff. assay neg, symptoms resolved almost completely at 24 hours looked well, DC home Discharge Information Condition at Discharge: Improved Follow Up: Weeks Disposition/Orders: D/C to Home Scheduled Ciprofloxacin Hcl (Cipro), 1 TAB PO BID, (Reported) Ipratropium [place] (Atrovent Hfa), 2 PUFF IH BID Levothyroxine Sodium (Levothyroxine Sodium), 1 TAB PO DAILY, (Reported) Tramadol Hcl (Tramadol Hcl), 1 TAB PO BID, (Reported) Scheduled PRN Albuterol Sulfate (Proair Hfa Inhaler), 1 PUFF INH PRN Q6HRS PRN for SHORTNESS OF BREATH, (Reported) Patient Instructions Patient Instructions dustin e> 30min FITO HAGEN MD November 03, 2016 11:23
--- NOTE | 2016-11-03 11:53 | PDOC ---
PULMONARY PROGRESS NOTES Subjective sob, improved, has occ cough, no pain, runny nose Vitals Vital Signs Date Time Temp Pulse Resp B/P (MAP) Pulse Ox O2 Delivery O2 Flow Rate FiO2 11/03/16 11:06 Room Air 11/03/16 07:36 96 11/03/16 07:00 97.9 97 17 113/68 (83) 97.9 ROS: No Nausea General: Alert HEENT: Other (nc at perrl) Lungs: Clear Cardiovascular: S1, S2 Abdomen: Soft, Non-tender Neuro Exam: Alert Extremities: No Edema Skin: Warm Labs Laboratory Tests Test 11/01/16 16:45 11/02/16 10:10 11/02/16 10:11 11/03/16 04:40 White Blood Count 23.8 x10^3/uL (4.0-11.0) 6.9 x10^3/uL (4.0-11.0) Red Blood Count 4.81 x10^6/uL (3.50-5.40) 3.73 x10^6/uL (3.50-5.40) Hemoglobin 13.7 g/dL (12.0-15.5) 11.0 g/dL (12.0-15.5) Hematocrit 41.7 % (36.0-47.0) 32.2 % (36.0-47.0) Mean Corpuscular Volume 87 fL (79-100) 86 fL (79-100) Mean Corpuscular Hemoglobin 29 pg (25-35) 29 pg (25-35) Mean Corpuscular Hemoglobin Concent 33 g/dL (31-37) 34 g/dL (31-37) Red Cell Distribution Width 14.4 % (11.5-14.5) 14.1 % (11.5-14.5) Platelet Count 213 x10^3/uL (140-400) 150 x10^3/uL (140-400) Neutrophils (%) (Auto) 89 % (31-73) 63 % (31-73) Lymphocytes (%) (Auto) 4 % (24-48) 30 % (24-48) Monocytes (%) (Auto) 7 % (0-9) 7 % (0-9) Eosinophils (%) (Auto) 0 % (0-3) 0 % (0-3) Basophils (%) (Auto) 0 % (0-3) 0 % (0-3) Neutrophils # (Auto) 21.2 x10^3uL (1.8-7.7) 4.3 x10^3uL (1.8-7.7) Lymphocytes # (Auto) 0.9 x10^3/uL (1.0-4.8) 2.1 x10^3/uL (1.0-4.8) Monocytes # (Auto) 1.6 x10^3/uL (0.0-1.1) 0.5 x10^3/uL (0.0-1.1) Eosinophils # (Auto) 0.0 x10^3/uL (0.0-0.7) 0.0 x10^3/uL (0.0-0.7) Basophils # (Auto) 0.0 x10^3/uL (0.0-0.2) 0.0 x10^3/uL (0.0-0.2) Segmented Neutrophils % 58 % (35-66) Band Neutrophils % 29 % (0-9) Lymphocytes % 7 % (24-48) Monocytes % 6 % (0-10) Platelet Estimate Adequate (ADEQUATE) Prothrombin Time 12.5 SEC (11.7-14.0) Prothromb Time International Ratio 1.0 (0.8-1.1) Activated Partial Thromboplast Time 24 SEC (24-38) Sodium Level 137 mmol/L (136-145) 140 mmol/L (136-145) Potassium Level 4.2 mmol/L (3.5-5.1) 3.6 mmol/L (3.5-5.1) Chloride Level 102 mmol/L (98-107) 107 mmol/L (98-107) Carbon Dioxide Level 27 mmol/L (21-32) 25 mmol/L (21-32) Anion Gap 8 (6-14) 8 (6-14) Blood Urea Nitrogen 15 mg/dL (7-20) 8 mg/dL (7-20) Creatinine 1.1 mg/dL (0.6-1.0) 0.8 mg/dL (0.6-1.0) Estimated GFR (Cockcroft-Gault) 48.7 70.3 BUN/Creatinine Ratio 14 (6-20) Glucose Level 143 mg/dL (70-99) 116 mg/dL (70-99) Calcium Level 9.3 mg/dL (8.5-10.1) 8.0 mg/dL (8.5-10.1) Magnesium Level 1.7 mg/dL (1.8-2.4) Total Bilirubin 0.4 mg/dL (0.2-1.0) Aspartate Amino Transf (AST/SGOT) 43 U/L (15-37) Alanine Aminotransferase (ALT/SGPT) 41 U/L (14-59) Alkaline Phosphatase 111 U/L (46-116) Creatine Kinase 156 U/L (26-192) Troponin I Quantitative < 0.017 ng/mL (0.000-0.055) IS-Xyq-C-Type Natriuretic Peptide 67 pg/mL (0-124) Total Protein 7.4 g/dL (6.4-8.2) Albumin 4.1 g/dL (3.4-5.0) Albumin/Globulin Ratio 1.2 (1.0-1.7) Lipase 225 U/L (73-393) Ethyl Alcohol Level < 10 mg/dL (0-10) Urine Collection Type Unknown Urine Color Yellow Urine Clarity Clear Urine pH 5.5 Urine Specific [place] 1.010 Urine Protein Negative mg/dL (NEG-TRACE) Urine Glucose (UA) Negative mg/dL (NEG) Urine Ketones (Stick) Negative mg/dL (NEG) Urine Blood Negative (NEG) Urine Nitrite Negative (NEG) Urine Bilirubin Negative (NEG) Urine Urobilinogen Dipstick 0.2 mg/dL (0.2 mg/dL) Urine Leukocyte Esterase Negative (NEG) Urine RBC 0 /HPF (0-2) Urine WBC 0 /HPF (0-4) Urine Squamous Epithelial Cells Few /LPF Urine Bacteria 0 /HPF (0-FEW) Urine Mucus Mod /LPF Clostridium difficile Toxin (PCR) Negative (Negative) Laboratory Tests Test 11/03/16 04:40 White Blood Count 6.9 x10^3/uL (4.0-11.0) Red Blood Count 3.73 x10^6/uL (3.50-5.40) Hemoglobin 11.0 g/dL (12.0-15.5) Hematocrit 32.2 % (36.0-47.0) Mean Corpuscular Volume 86 fL (79-100) Mean Corpuscular Hemoglobin 29 pg (25-35) Mean Corpuscular Hemoglobin Concent 34 g/dL (31-37) Red Cell Distribution Width 14.1 % (11.5-14.5) Platelet Count 150 x10^3/uL (140-400) Neutrophils (%) (Auto) 63 % (31-73) Lymphocytes (%) (Auto) 30 % (24-48) Monocytes (%) (Auto) 7 % (0-9) Eosinophils (%) (Auto) 0 % (0-3) Basophils (%) (Auto) 0 % (0-3) Neutrophils # (Auto) 4.3 x10^3uL (1.8-7.7) Lymphocytes # (Auto) 2.1 x10^3/uL (1.0-4.8) Monocytes # (Auto) 0.5 x10^3/uL (0.0-1.1) Eosinophils # (Auto) 0.0 x10^3/uL (0.0-0.7) Basophils # (Auto) 0.0 x10^3/uL (0.0-0.2) Sodium Level 140 mmol/L (136-145) Potassium Level 3.6 mmol/L (3.5-5.1) Chloride Level 107 mmol/L (98-107) Carbon Dioxide Level 25 mmol/L (21-32) Anion Gap 8 (6-14) Blood Urea Nitrogen 8 mg/dL (7-20) Creatinine 0.8 mg/dL (0.6-1.0) Estimated GFR (Cockcroft-Gault) 70.3 Glucose Level 116 mg/dL (70-99) Calcium Level 8.0 mg/dL (8.5-10.1) Medications Active Scripts Medications Dose Route/Sig Max Daily Dose Days Date Category Atrovent Hfa (Ipratropium [place]) 12.9 Gm Hfa.aer.ad 2 Puff IH BID 11/03/16 Rx Cipro (Ciprofloxacin Hcl) 250 Mg Tablet 1 Tab PO BID 12/07/15 Reported Proair Hfa Inhaler (Albuterol Sulfate) 8.5 Gm Hfa.aer.ad 1 Puff INH PRN Q6HRS PRN 12/07/15 Reported Tramadol Hcl 50 Mg Tablet 1 Tab PO BID 12/07/15 Reported Levothyroxine Sodium 25 Mcg Tablet 1 Tab PO DAILY 12/07/[address] reviewed, 1. Right upper lobe and right middle lobe nodules, all measuring less than 6 mm in size. Impression . IMPRESSION: 1. Tiny 2-6 mm nodule in the right middle lobe. This is a patient who has been a smoker since age 16. These nodules are too small and could be inflammatory. However, with heavy tobaccoism, I would recommend repeating a CT chest in 6 months. Since these nodules were seen on the CT abdomen and pelvis, I will do a full CT chest today. 2. Long history of tobacco use, suspect underlying chronic obstructive pulmonary disease. 3. Suspected antibiotic-associated diarrhea. Plan . RECOMMENDATIONS: 1. ct of chest reviewed 2. would recommend to repeat CT chest in [address] panda has given his office number. She can do the CT chest either through her primary care or call my office for a followup in [address] chest at that time. 4. Smoking cessation counseling provided. 5. Continue present bronchodilators. 6. Continue hydration. 7. will sign off but available for any help discussed ALFONZO Myers pt, MD November 03, 2016 11:53
[2016-11-03] MEDS: ENOXAPARIN 40 MG/0.4 ML SYRINGE. SQ SCH (11:54)
== END 2016-11-03 13:30 | disposition home or self-care (01) | DRG 872 ==
LOC: ER 16:23 → 5 NORTH 19:37 → ER 22:45
PROVIDERS: ADMIT Internal Medicine; ATTEND Internal Medicine
DX: A41.9 Sepsis, unspecified organism (principal); J40 Bronchitis, not specified as acute or chronic; A08.4 Viral intestinal infection, unspecified; E03.9 Hypothyroidism, unspecified; E86.0 Dehydration; F17.210 Nicotine dependence, cigarettes, uncomplicated; G25.81 Restless legs syndrome; I10 Essential (primary) hypertension; J44.9 Chronic obstructive pulmonary disease, unspecified; Z90.710 Acquired absence of both cervix and uterus; Z88.6 Allergy status to analgesic agent; Z88.8 Allergy status to other drugs, medicaments and biological substances; Z98.51 Tubal ligation status; Z71.6 Tobacco abuse counseling
CPT/HCPCS: 36415; 71010; 71250; 74176; 80048; 80053; 81001; 82550; 83690; 83735; 83880; 84484; 85007; 85027; 85610; 85730; 87040; 87324; 94250; 94640; 94760; 96361; 96365; 96368; 96375; G0480; J1650; J1956; J2405; J2543; J3010; J3490; J7030; J7620; 99285-25

== ENCOUNTER 2017-07-25 14:29 | Inpatient (IN) | payer BC, OTHER ==
[2017-07-25 15:21] LABS: HEMATOCRIT 21.8 % (36.0-47.0); HEMOGLOBIN 7.4 g/dL (12.0-15.5); MEAN CORPUSCULAR HEMOGLOBIN 31 pg (25-35); MEAN CORPUSCULAR HGB CONC 34 g/dL (31-37); MEAN CORPUSCULAR VOLUME 91 fL (79-100)
[2017-07-25 15:28] LABS: WHITE BLOOD COUNT 0.8 x10^3/uL (4.0-11.0)
[2017-07-25 15:29] LABS: PLATELET COUNT < 3 x10^3/uL (140-400); PROTHROMBIN TIME PATIENT 12.4 SEC (11.7-14.0)
[2017-07-25 15:32] LABS: BLOOD UREA NITROGEN 23 mg/dL (7-20); BUN/CREATININE RATIO 26 (6-20); CALCIUM 8.7 mg/dL (8.5-10.1); CARBON DIOXIDE 26 mmol/L (21-32); CHLORIDE 100 mmol/L (98-107); CREATININE 0.9 mg/dL (0.6-1.0); GFR 61.4; GLUCOSE 157 mg/dL (70-99); POTASSIUM 3.9 mmol/L (3.5-5.1); SODIUM 138 mmol/L (136-145)
[2017-07-25 15:33] LABS: ANION GAP 12 (6-14)
[2017-07-25 15:38] LABS: ALBUMIN 3.8 g/dL (3.4-5.0); ALK PHOS 102 U/L (46-116); ALT (SGPT) 27 U/L (14-59); AST (SGOT) 17 U/L (15-37); TOTAL BILIRUBIN 0.6 mg/dL (0.2-1.0); TOTAL PROTEIN 7.8 g/dL (6.4-8.2)
[2017-07-25] MEDS ORDERED: ONDANSETRON PF 4 MG/2 ML VIAL. IV ×2 (16:15)
[2017-07-25] MEDS ORDERED: diphenhydrAMINE HCL 25 MG CAPSULE PO ×2 (16:15)
[2017-07-25 16:20] LABS: BASO % 0 % (0-3); EOS % 0 % (0-3); HEMATOCRIT 21.5 % (36.0-47.0); HEMOGLOBIN 7.3 g/dL (12.0-15.5); LYMPH # 0.7 x10^3/uL (1.0-4.8); LYMPH % 95 % (24-48); MEAN CORPUSCULAR HEMOGLOBIN 31 pg (25-35); MEAN CORPUSCULAR HGB CONC 34 g/dL (31-37); MEAN CORPUSCULAR VOLUME 91 fL (79-100); MONO % 1 % (0-9); NEUT % 4 % (31-73); RED BLOOD COUNT 2.36 x10^6/uL (3.50-5.40); RED CELL DISTRIBUTION WIDTH 13.7 % (11.5-14.5)
[2017-07-25 16:24] LABS: PLATELET COUNT < 3 x10^3/uL (140-400); WHITE BLOOD COUNT 0.7 x10^3/uL (4.0-11.0)
[2017-07-25 16:25] LABS: ADD MAN DIFF? YES
[2017-07-25] MEDS: methylPREDNISolone SOD SUCC PF 125 MG/2 ML VIAL. IV ×4 (17:00→21:42)
[2017-07-25 17:11] LABS: % BANDS 1 % (0-9); % LYMPHS 99 % (24-48); PLT ESTIMATE DECREASED (ADEQUATE)
[2017-07-25 18:26] LABS: FECAL OB PT POSITIVE (NEG); NEG OBC FOB NEG; POS OBC FOB POS
[2017-07-25] MEDS: IPRATROPIUM BROMIDE 0.5 MG/2.5 ML NEBU. NEB ×2 (20:19)
[2017-07-25] MEDS: traMADol 50 MG TABLET PO ×2 (20:56)
[2017-07-25] MEDS ORDERED: NON FORMULARY ITEM (Ipratropium Bromide (Atrovent Hfa) 2 PUFF) IH ×2 (21:00)
[2017-07-26] MEDS: methylPREDNISolone SOD SUCC PF 125 MG/2 ML VIAL. IV ×6 (06:20→21:25)
[2017-07-26] MEDS: LEVOTHYROXINE 25 MCG TABLET. PO ×2 (06:42)
[2017-07-26 08:24] LABS: ADD MAN DIFF? NO
[2017-07-26 08:41] LABS: % SAT IRON 88 % (15-34); IRON,SERUM 228 ug/dL (50-170)
[2017-07-26 08:56] LABS: FERRITIN 179 ng/mL (8-252)
[2017-07-26 09:25] LABS: BASO % 0 % (0-3); EOS % 0 % (0-3); LYMPH # 0.6 x10^3/uL (1.0-4.8); LYMPH % 95 % (24-48); MEAN CORPUSCULAR HEMOGLOBIN 32 pg (25-35); MEAN CORPUSCULAR HGB CONC 35 g/dL (31-37); MEAN CORPUSCULAR VOLUME 91 fL (79-100); MONO % 2 % (0-9); NEUT % 3 % (31-73); RED BLOOD COUNT 1.97 x10^6/uL (3.50-5.40); RED CELL DISTRIBUTION WIDTH 13.4 % (11.5-14.5)
[2017-07-26] MEDS: traMADol 50 MG TABLET PO ×4 (09:27→21:24)
[2017-07-26 10:02] LABS: HEMATOCRIT 17.9 % (36.0-47.0); HEMOGLOBIN 6.3 g/dL (12.0-15.5); PLATELET COUNT < 3 x10^3/uL (140-400); RETIC COUNT 0.1 % (0.5-2.5); WHITE BLOOD COUNT 0.7 x10^3/uL (4.0-11.0)
[2017-07-26] MEDS: IPRATROPIUM BROMIDE 0.5 MG/2.5 ML NEBU. NEB ×4 (11:08→20:52)
[2017-07-26 12:22] LABS: MRSA BY PCR Negative (Negative)
[2017-07-26 14:46] LABS: VITAMIN-B12 249 pg/mL (247-911)
[2017-07-26 14:46] LABS: FOLATE 13.71 ng/ml (3.2-20.0)
[2017-07-26] MEDS: CYANOCOBALAMIN (VITAMIN B-12) 1,000 MCG/ML VIAL IM ×2 (18:07)
[2017-07-27 05:22] LABS: ADD MAN DIFF? NO
[2017-07-27 05:46] LABS: BASO % 0 % (0-3); EOS % 1 % (0-3); HEMATOCRIT 21.8 % (36.0-47.0); HEMOGLOBIN 7.6 g/dL (12.0-15.5); LYMPH # 1.2 x10^3/uL (1.0-4.8); LYMPH % 95 % (24-48); MEAN CORPUSCULAR HEMOGLOBIN 31 pg (25-35); MEAN CORPUSCULAR HGB CONC 35 g/dL (31-37); MEAN CORPUSCULAR VOLUME 89 fL (79-100); MONO % 1 % (0-9); NEUT % 3 % (31-73); RED BLOOD COUNT 2.45 x10^6/uL (3.50-5.40); RED CELL DISTRIBUTION WIDTH 14.5 % (11.5-14.5)
[2017-07-27 06:15] LABS: WHITE BLOOD COUNT 1.3 x10^3/uL (4.0-11.0)
[2017-07-27 06:16] LABS: PLATELET COUNT 3 x10^3/uL (140-400)
[2017-07-27 06:17] LABS: ANION GAP 11 (6-14); BLOOD UREA NITROGEN 27 mg/dL (7-20); CALCIUM 9.3 mg/dL (8.5-10.1); CARBON DIOXIDE 22 mmol/L (21-32); CHLORIDE 105 mmol/L (98-107); CREATININE 0.8 mg/dL (0.6-1.0); GFR 70.3; GLUCOSE 161 mg/dL (70-99); POTASSIUM 4.4 mmol/L (3.5-5.1); SODIUM 138 mmol/L (136-145)
[2017-07-27] MEDS: LEVOTHYROXINE 25 MCG TABLET. PO ×2 (06:21)
[2017-07-27] MEDS: methylPREDNISolone SOD SUCC PF 125 MG/2 ML VIAL. IV ×6 (06:21→21:02)
[2017-07-27] MEDS: IPRATROPIUM BROMIDE 0.5 MG/2.5 ML NEBU. NEB ×4 (07:36→20:08)
[2017-07-27] MEDS: CYANOCOBALAMIN (VITAMIN B-12) 1,000 MCG TABLET. PO ×2 (09:09)
[2017-07-27] MEDS: ACETAMINOPHEN 500 MG TABLET PO ×2 (09:10)
[2017-07-27] MEDS: CYANOCOBALAMIN (VITAMIN B-12) 1,000 MCG/ML VIAL IM ×2 (09:10)
[2017-07-27] MEDS: traMADol 50 MG TABLET PO ×4 (09:10→21:02)
[2017-07-27] MEDS ORDERED: LIDOCAINE WITH 8.4% SOD BICARB 3 ML DISP.SYRIN. ×2 (09:44)
[2017-07-27] MEDS ORDERED: fentaNYL PF VIAL 100 MCG/2 ML VIAL ×2 (09:45)
[2017-07-27] MEDS ORDERED: MIDAZOLAM HCL/PF 2 MG/2 ML VIAL. ×2 (09:45)
[2017-07-27] MEDS ORDERED: NALOXONE 0.4 MG/ML VIAL. ×2 (09:45)
[2017-07-27] MEDS ORDERED: FLUMAZENIL 0.5 MG/5 ML VIAL. IV ×2 (09:45)
[2017-07-27] MEDS: LIDOCAINE WITH 8.4% SOD BICARB 3 ML DISP.SYRIN. IJ ×2 (10:23)
[2017-07-27] MEDS: MIDAZOLAM HCL/PF 2 MG/2 ML VIAL. IV ×2 (10:24)
[2017-07-27] MEDS: fentaNYL PF VIAL 100 MCG/2 ML VIAL IV ×2 (10:24)
[2017-07-27] MEDS: FAMOTIDINE 20 MG TABLET. PO ×2 (21:02)
[2017-07-28] MEDS: LEVOTHYROXINE 25 MCG TABLET. PO ×2 (05:46)
[2017-07-28] MEDS: methylPREDNISolone SOD SUCC PF 125 MG/2 ML VIAL. IV ×6 (05:47→21:34)
[2017-07-28] MEDS: ACETAMINOPHEN 500 MG TABLET PO ×2 (05:49)
[2017-07-28] MEDS: CYANOCOBALAMIN (VITAMIN B-12) 1,000 MCG TABLET. PO ×2 (08:06)
[2017-07-28] MEDS: traMADol 50 MG TABLET PO ×4 (08:07→20:22)
[2017-07-28] MEDS: IPRATROPIUM BROMIDE 0.5 MG/2.5 ML NEBU. NEB ×6 (09:00→19:24)
[2017-07-28 09:11] LABS: ADD MAN DIFF? NO
[2017-07-28 09:17] LABS: BASO % 0 % (0-3); EOS % 1 % (0-3); LYMPH # 0.8 x10^3/uL (1.0-4.8); LYMPH % 94 % (24-48); MEAN CORPUSCULAR HEMOGLOBIN 31 pg (25-35); MEAN CORPUSCULAR HGB CONC 35 g/dL (31-37); MEAN CORPUSCULAR VOLUME 90 fL (79-100); MONO % 1 % (0-9); NEUT % 4 % (31-73); RED BLOOD COUNT 2.07 x10^6/uL (3.50-5.40); RED CELL DISTRIBUTION WIDTH 14.4 % (11.5-14.5)
[2017-07-28 09:23] LABS: HEMATOCRIT 18.6 % (36.0-47.0); HEMOGLOBIN 6.4 g/dL (12.0-15.5); PLATELET COUNT 10 x10^3/uL (140-400); WHITE BLOOD COUNT 0.8 x10^3/uL (4.0-11.0)
[2017-07-28 11:48] LABS: IMMEDIATE SPIN CROSSMATCH 1 3
[2017-07-28] MEDS: LIDO:MAALOX:BENADRYL 1:1:1 180 ML BOTTLE. PO ×2 (20:22)
[2017-07-28] MEDS: FAMOTIDINE 20 MG TABLET. PO ×2 (20:22)
[2017-07-29] MEDS: LIDO:MAALOX:BENADRYL 1:1:1 180 ML BOTTLE. PO ×6 (02:58→21:04)
[2017-07-29] MEDS: LEVOTHYROXINE 25 MCG TABLET. PO ×2 (06:32)
[2017-07-29] MEDS: methylPREDNISolone SOD SUCC PF 125 MG/2 ML VIAL. IV ×4 (06:32→16:48)
[2017-07-29 07:22] LABS: ADD MAN DIFF? NO
[2017-07-29 07:32] LABS: BASO % 0 % (0-3); EOS % 0 % (0-3); LYMPH # 0.5 x10^3/uL (1.0-4.8); LYMPH % 96 % (24-48); MEAN CORPUSCULAR HEMOGLOBIN 31 pg (25-35); MEAN CORPUSCULAR HGB CONC 35 g/dL (31-37); MEAN CORPUSCULAR VOLUME 90 fL (79-100); MONO % 2 % (0-9); NEUT % 2 % (31-73); RED BLOOD COUNT 2.27 x10^6/uL (3.50-5.40); RED CELL DISTRIBUTION WIDTH 13.9 % (11.5-14.5)
[2017-07-29 07:37] LABS: HEMATOCRIT 20.4 % (36.0-47.0); PLATELET COUNT < 3 x10^3/uL (140-400); WHITE BLOOD COUNT 0.6 x10^3/uL (4.0-11.0)
[2017-07-29] MEDS: CYANOCOBALAMIN (VITAMIN B-12) 1,000 MCG TABLET. PO ×2 (07:59)
[2017-07-29] MEDS: traMADol 50 MG TABLET PO ×4 (07:59→21:03)
[2017-07-29] MEDS: IPRATROPIUM BROMIDE 0.5 MG/2.5 ML NEBU. NEB ×2 (08:35)
[2017-07-29] MEDS ORDERED: ACETAMINOPHEN 325 MG TABLET. PO ×2 (11:00)
[2017-07-29] MEDS: ACETAMINOPHEN 325 MG TABLET. PO ×2 (14:42)
[2017-07-29] MEDS: diphenhydrAMINE HCL 25 MG CAPSULE PO ×2 (14:42)
[2017-07-29 15:04] LABS: IMMEDIATE SPIN CROSSMATCH 1
[2017-07-29 17:28] LABS: HEMATOCRIT 22.6 % (36.0-47.0); HEMOGLOBIN 7.8 g/dL (12.0-15.5); MEAN CORPUSCULAR HEMOGLOBIN 30 pg (25-35); MEAN CORPUSCULAR HGB CONC 34 g/dL (31-37); MEAN CORPUSCULAR VOLUME 88 fL (79-100); PLATELET COUNT 50 x10^3/uL (140-400); RED BLOOD COUNT 2.58 x10^6/uL (3.50-5.40); RED CELL DISTRIBUTION WIDTH 15.2 % (11.5-14.5)
[2017-07-29 17:30] LABS: WHITE BLOOD COUNT 0.4 x10^3/uL (4.0-11.0)
[2017-07-29] MEDS: FAMOTIDINE 20 MG TABLET. PO ×2 (21:03)
[2017-07-30] MEDS: LEVOTHYROXINE 25 MCG TABLET. PO ×2 (05:07)
[2017-07-30 06:04] LABS: ADD MAN DIFF? NO
[2017-07-30 06:17] LABS: BASO % 0 % (0-3); EOS % 2 % (0-3); HEMATOCRIT 23.7 % (36.0-47.0); HEMOGLOBIN 8.1 g/dL (12.0-15.5); LYMPH # 0.4 x10^3/uL (1.0-4.8); LYMPH % 90 % (24-48); MEAN CORPUSCULAR HEMOGLOBIN 30 pg (25-35); MEAN CORPUSCULAR HGB CONC 34 g/dL (31-37); MEAN CORPUSCULAR VOLUME 89 fL (79-100); MONO % 5 % (0-9); NEUT % 3 % (31-73); PLATELET COUNT 36 x10^3/uL (140-400); RED BLOOD COUNT 2.66 x10^6/uL (3.50-5.40); RED CELL DISTRIBUTION WIDTH 15.3 % (11.5-14.5)
[2017-07-30 06:34] LABS: WHITE BLOOD COUNT 0.2 x10^3/uL (4.0-11.0)
[2017-07-30 07:14] LABS: PARTIAL THROMBOPLASTIN TIME 22 SEC (24-38)
[2017-07-30 07:15] LABS: FIBRINOGEN 490 mg/dL (200-440)
[2017-07-30] MEDS: CYANOCOBALAMIN (VITAMIN B-12) 1,000 MCG TABLET. PO ×2 (08:16)
[2017-07-30] MEDS: methylPREDNISolone SOD SUCC PF 125 MG/2 ML VIAL. IV ×2 (08:17)
[2017-07-30] MEDS: traMADol 50 MG TABLET PO ×4 (08:17→20:23)
[2017-07-30] MEDS: ONDANSETRON ODT 4 MG TAB.RAPDIS. PO ×2 (11:22)
[2017-07-30] MEDS: MORPHINE SULFATE 2 MG/ML DISP.SYRIN. IV ×4 (18:11→20:23)
[2017-07-30] MEDS ORDERED: MORPHINE SULFATE 4 MG/ML DISP.SYRIN. IV ×4 (18:15)
[2017-07-30] MEDS: ACETAMINOPHEN 325 MG TABLET. PO ×2 (20:22)
[2017-07-30] MEDS: FAMOTIDINE 20 MG TABLET. PO ×2 (20:23)
[2017-07-30] MEDS: LIDOCAINE (700MG/PATCH) PATCH. TD ×2 (21:26)
[2017-07-30] MEDS: MORPHINE SULFATE 4 MG/ML DISP.SYRIN. IV ×2 (23:42)
[2017-07-31] MEDS: ALBUTEROL SULFATE 2.5 MG/3 ML NEBU. NEB ×4 (00:59→11:51)
[2017-07-31] MEDS: MORPHINE SULFATE 4 MG/ML DISP.SYRIN. IV ×2 (01:43)
[2017-07-31 05:42] LABS: ADD MAN DIFF? NO
[2017-07-31 05:57] LABS: BASO % 0 % (0-3); EOS % 1 % (0-3); HEMATOCRIT 22.7 % (36.0-47.0); HEMOGLOBIN 7.7 g/dL (12.0-15.5); LYMPH # 0.1 x10^3/uL (1.0-4.8); LYMPH % 88 % (24-48); MEAN CORPUSCULAR HEMOGLOBIN 30 pg (25-35); MEAN CORPUSCULAR HGB CONC 34 g/dL (31-37); MEAN CORPUSCULAR VOLUME 89 fL (79-100); MONO % 7 % (0-9); NEUT % 4 % (31-73); RED BLOOD COUNT 2.54 x10^6/uL (3.50-5.40); RED CELL DISTRIBUTION WIDTH 14.9 % (11.5-14.5)
[2017-07-31 06:00] LABS: PLATELET COUNT 7 x10^3/uL (140-400); WHITE BLOOD COUNT 0.2 x10^3/uL (4.0-11.0)
[2017-07-31] MEDS: LEVOTHYROXINE 25 MCG TABLET. PO ×2 (06:43)
[2017-07-31] MEDS: CYANOCOBALAMIN (VITAMIN B-12) 1,000 MCG TABLET. PO ×2 (08:43)
[2017-07-31] MEDS: traMADol 50 MG TABLET PO ×4 (08:44→20:14)
[2017-07-31] MEDS: LIDOCAINE (700MG/PATCH) PATCH. TD ×4 (08:44→08:46)
[2017-07-31] MEDS ORDERED: CONTRAST GIVEN MC ×2 (09:15)
[2017-07-31] MEDS: IOHEXOL 300 MG/ML 100ML VIAL. IV ×2 (09:15)
[2017-07-31] MEDS: diphenhydrAMINE HCL 25 MG CAPSULE PO ×2 (09:20)
[2017-07-31] MEDS: methylPREDNISolone SOD SUCC PF 125 MG/2 ML VIAL. IV ×2 (16:29)
[2017-07-31 17:39] LABS: POC GLUCOSE 169 mg/dL (70-99)
[2017-07-31] MEDS: LIDO:MAALOX:BENADRYL 1:1:1 180 ML BOTTLE. PO ×2 (17:49)
[2017-07-31] MEDS ORDERED: PIP/TAZO PER PHARMACY MC ×2 (18:00)
[2017-07-31] MEDS: PIPERACILLIN/TAZOBACTAM 3.375 GM in IV NORMAL SALINE 50ML 50 ML IV (19:15)
[2017-07-31] MEDS: FAMOTIDINE 20 MG TABLET. PO ×2 (20:14)
[2017-07-31] MEDS: MORPHINE SULFATE 2 MG/ML DISP.SYRIN. IV ×2 (20:15)
[2017-07-31] MEDS: ENOXAPARIN 30 MG/0.3 ML SYRINGE. SQ ×2 (21:00)
[2017-07-31] MEDS ORDERED: ENOXAPARIN 40 MG/0.4 ML SYRINGE. SQ ×2 (21:00)
[2017-08-01] MEDS: PIPERACILLIN/TAZOBACTAM 3.375 GM in IV NORMAL SALINE 50ML 50 ML IV ×4 (00:47→17:48)
[2017-08-01] MEDS: MORPHINE SULFATE 4 MG/ML DISP.SYRIN. IV ×4 (00:53→23:36)
[2017-08-01] MEDS: LEVOTHYROXINE 25 MCG TABLET. PO ×2 (06:09)
[2017-08-01 07:34] LABS: ADD MAN DIFF? NO
[2017-08-01 07:39] LABS: BASO % 3 % (0-3); EOS % 0 % (0-3); HEMATOCRIT 24.7 % (36.0-47.0); HEMOGLOBIN 8.4 g/dL (12.0-15.5); LYMPH # 0.1 x10^3/uL (1.0-4.8); LYMPH % 71 % (24-48); MEAN CORPUSCULAR HEMOGLOBIN 31 pg (25-35); MEAN CORPUSCULAR HGB CONC 34 g/dL (31-37); MEAN CORPUSCULAR VOLUME 90 fL (79-100); MONO % 1 % (0-9); NEUT # 0.1 x10^3uL (1.8-7.7); NEUT % 25 % (31-73); RED BLOOD COUNT 2.75 x10^6/uL (3.50-5.40); RED CELL DISTRIBUTION WIDTH 14.8 % (11.5-14.5)
[2017-08-01 07:43] LABS: PLATELET COUNT 19 x10^3/uL (140-400); WHITE BLOOD COUNT 0.2 x10^3/uL (4.0-11.0)
[2017-08-01] MEDS ORDERED: ACETAMINOPHEN 325 MG TABLET. PO ×2 (07:45)
[2017-08-01 07:48] LABS: ANION GAP 10 (6-14); BLOOD UREA NITROGEN 30 mg/dL (7-20); CALCIUM 8.7 mg/dL (8.5-10.1); CARBON DIOXIDE 25 mmol/L (21-32); CHLORIDE 95 mmol/L (98-107); GFR 54.3; GLUCOSE 235 mg/dL (70-99); POTASSIUM 3.8 mmol/L (3.5-5.1)
[2017-08-01 08:21] LABS: SODIUM 130 mmol/L (136-145)
[2017-08-01] MEDS: valACYclovir 500 MG TABLET. PO ×4 (09:41→20:36)
[2017-08-01] MEDS: CHLORHEXIDINE 0.12% 15 ML MOUTHWASH. SWSP ×6 (09:41→20:37)
[2017-08-01] MEDS: CYANOCOBALAMIN (VITAMIN B-12) 1,000 MCG TABLET. PO ×2 (09:41)
[2017-08-01] MEDS: traMADol 50 MG TABLET PO ×4 (09:41→20:36)
[2017-08-01] MEDS: diphenhydrAMINE ORAL ELIXIR 12.5 MG/5 ML ML PO ×2 (09:42)
[2017-08-01] MEDS: LIDOCAINE (700MG/PATCH) PATCH. TD ×2 (09:42)
[2017-08-01] MEDS: NICOTINE 21MG PATCH. TD ×2 (09:43)
[2017-08-01] MEDS: MORPHINE SULFATE 2 MG/ML DISP.SYRIN. IV ×2 (10:27)
[2017-08-01 10:57] LABS: IMMEDIATE SPIN CROSSMATCH 1 1
[2017-08-01] MEDS: IPRATRPIUM/ALBUTEROL 0.5/2.5MG 3 ML NEBU. NEB ×6 (12:05→19:55)
[2017-08-01 13:31] LABS: ALBUMIN 2.5 g/dL (3.4-5.0); ALK PHOS 384 U/L (46-116); ALT (SGPT) 84 U/L (14-59); AST (SGOT) 15 U/L (15-37); DIRECT BILIRUBIN 0.5 mg/dL (0.0-0.2); TOTAL BILIRUBIN 1.2 mg/dL (0.2-1.0)
[2017-08-01 13:35] LABS: MYCOPLASMA PATIENT NEGATIVE (NEGATIVE); NEGATIVE OBC MYCO NEG; POSITIVE OBC MYCO POS
[2017-08-01 14:28] LABS: MONONUCLEOSIS PATIENT NEGATIVE (NEGATIVE); NEGATIVE OBC MONO NEG; POSITIVE OBC MONO POS
[2017-08-01] MEDS: ALPRAZolam 0.25 MG TABLET PO ×2 (20:36)
[2017-08-01] MEDS: FAMOTIDINE 20 MG TABLET. PO ×2 (20:36)
[2017-08-02 00:10] LABS: HCV ANTIBODY 0.1 s/co ratio (0.0-0.9); HEP A IGM ABDY Negative (Negative); HEP B SURFACE AG Negative (Negative); HIV ANTIBODY Non Reactive (Non Reactive)
[2017-08-02] MEDS: PIPERACILLIN/TAZOBACTAM 3.375 GM in IV NORMAL SALINE 50ML 50 ML IV ×2 (00:22→06:19)
[2017-08-02] MEDS: LEVOTHYROXINE 25 MCG TABLET. PO ×2 (06:21)
[2017-08-02] MEDS: IPRATRPIUM/ALBUTEROL 0.5/2.5MG 3 ML NEBU. NEB ×10 (08:00→20:54)
[2017-08-02] MEDS: CYANOCOBALAMIN (VITAMIN B-12) 1,000 MCG TABLET. PO ×2 (09:31)
[2017-08-02] MEDS: traMADol 50 MG TABLET PO ×4 (09:31→21:41)
[2017-08-02] MEDS: valACYclovir 500 MG TABLET. PO ×4 (09:32→21:41)
[2017-08-02] MEDS: CHLORHEXIDINE 0.12% 15 ML MOUTHWASH. SWSP ×6 (09:35→21:43)
[2017-08-02] MEDS: LIDOCAINE (700MG/PATCH) PATCH. TD ×2 (09:35)
[2017-08-02 09:38] LABS: ADD MAN DIFF? NO
[2017-08-02 09:43] LABS: BASO % 0 % (0-3); EOS % 0 % (0-3); HEMOGLOBIN 7.3 g/dL (12.0-15.5); LYMPH # 0.3 x10^3/uL (1.0-4.8); LYMPH % 77 % (24-48); MEAN CORPUSCULAR HEMOGLOBIN 31 pg (25-35); MEAN CORPUSCULAR HGB CONC 35 g/dL (31-37); MEAN CORPUSCULAR VOLUME 88 fL (79-100); MONO % 1 % (0-9); NEUT # 0.1 x10^3uL (1.8-7.7); NEUT % 22 % (31-73); RED BLOOD COUNT 2.38 x10^6/uL (3.50-5.40); RED CELL DISTRIBUTION WIDTH 14.3 % (11.5-14.5)
[2017-08-02 10:09] LABS: HEMATOCRIT 20.8 % (36.0-47.0); WHITE BLOOD COUNT 0.4 x10^3/uL (4.0-11.0)
[2017-08-02 10:11] LABS: PLATELET COUNT 9 x10^3/uL (140-400)
[2017-08-02] MEDS: ALPRAZolam 0.25 MG TABLET PO ×2 (10:38)
[2017-08-02] MEDS: ACETAMINOPHEN 325 MG TABLET. PO ×2 (20:13)
[2017-08-02] MEDS: FAMOTIDINE 20 MG TABLET. PO ×2 (21:41)
[2017-08-03] MEDS: LEVOTHYROXINE 25 MCG TABLET. PO ×2 (06:32)
[2017-08-03] MEDS: IPRATRPIUM/ALBUTEROL 0.5/2.5MG 3 ML NEBU. NEB ×6 (07:34→17:38)
[2017-08-03 10:29] LABS: ADD MAN DIFF? NO
[2017-08-03 10:35] LABS: BASO % 1 % (0-3); EOS % 1 % (0-3); LYMPH # 0.3 x10^3/uL (1.0-4.8); LYMPH % 68 % (24-48); MEAN CORPUSCULAR HEMOGLOBIN 31 pg (25-35); MEAN CORPUSCULAR HGB CONC 34 g/dL (31-37); MEAN CORPUSCULAR VOLUME 90 fL (79-100); MONO % 3 % (0-9); NEUT # 0.1 x10^3uL (1.8-7.7); NEUT % 28 % (31-73); RED BLOOD COUNT 2.19 x10^6/uL (3.50-5.40); RED CELL DISTRIBUTION WIDTH 14.6 % (11.5-14.5)
[2017-08-03 10:46] LABS: HEMOGLOBIN 6.7 g/dL (12.0-15.5); WHITE BLOOD COUNT 0.5 x10^3/uL (4.0-11.0)
[2017-08-03 10:47] LABS: HEMATOCRIT 19.8 % (36.0-47.0); PLATELET COUNT < 3 x10^3/uL (140-400)
[2017-08-03] MEDS: valACYclovir 500 MG TABLET. PO ×2 (11:08)
[2017-08-03] MEDS: CYANOCOBALAMIN (VITAMIN B-12) 1,000 MCG TABLET. PO ×2 (11:08)
[2017-08-03] MEDS: CHLORHEXIDINE 0.12% 15 ML MOUTHWASH. SWSP ×4 (11:08→16:20)
[2017-08-03 11:57] LABS: IMMEDIATE SPIN CROSSMATCH 1 2
[2017-08-03] MEDS: ACETAMINOPHEN 325 MG TABLET. PO ×2 (12:26)
[2017-08-03] MEDS: traMADol 50 MG TABLET PO ×2 (12:28)
[2017-08-03] MEDS: LIDOCAINE (700MG/PATCH) PATCH. TD ×2 (12:31)
[2017-08-03] MEDS ORDERED: CEFEPIME HCL 2 GM in IV DEXTROSE 5% 100 ML IV (12:45)
[2017-08-03] MEDS: CEFEPIME HCL IV Push 2 GM VIAL. IVP ×2 (13:01)
[2017-08-03 13:15] LABS: IMMEDIATE SPIN CROSSMATCH 1
[2017-08-03 14:29] LABS: PARVO IGG 5.4 index (0.0-0.8); PARVO IGM 0.1 index (0.0-0.8)
[2017-08-03 22:15] LABS: HSV 1&2 IGM 1.16 Ratio (0.00-0.90)
== END 2017-08-03 18:20 | disposition short-term general hospital (02) | DRG 808 ==
LOC: 2 SOUTH 07-28 14:53 → ER 14:29 → 2 SOUTH 07-26 14:48 → ED HOLD 15:47 → 1 WEST ICU 19:47
PROC: 30233N1 Transfusion of Nonautologous Red Blood Cells into Peripheral Vein, Percutaneous Approach (ICD-10-PCS; 2017-07-26)
PROC: 07DR3ZX Extraction of Iliac Bone Marrow, Percutaneous Approach, Diagnostic (ICD-10-PCS; principal; 2017-07-27)
PROC: 30233R1 Transfusion of Nonautologous Platelets into Peripheral Vein, Percutaneous Approach (ICD-10-PCS; 2017-07-28)
DX: D61.818 Other pancytopenia (principal); J96.01 Acute respiratory failure with hypoxia; G93.40 Encephalopathy, unspecified; J18.9 Pneumonia, unspecified organism; D69.3 Immune thrombocytopenic purpura; D63.8 Anemia in other chronic diseases classified elsewhere; K62.5 Hemorrhage of anus and rectum; F03.90 Unspecified dementia, unspecified severity, without behavioral disturbance, psychotic disturbance, mood disturbance, and anxiety; J44.0 Chronic obstructive pulmonary disease with (acute) lower respiratory infection; E86.9 Volume depletion, unspecified; E03.9 Hypothyroidism, unspecified; E53.8 Deficiency of other specified B group vitamins; F17.210 Nicotine dependence, cigarettes, uncomplicated; G25.81 Restless legs syndrome; H91.90 Unspecified hearing loss, unspecified ear; I10 Essential (primary) hypertension; K12.1 Other forms of stomatitis; K76.89 Other specified diseases of liver; M79.7 Fibromyalgia; S00.522A Blister (nonthermal) of oral cavity, initial encounter; X58.XXXA Exposure to other specified factors, initial encounter; Y93.89 Activity, other specified; Z86.718 Personal history of other venous thrombosis and embolism; Z90.710 Acquired absence of both cervix and uterus; Y92.89 Other specified places as the place of occurrence of the external cause; Y99.8 Other external cause status; Z88.5 Allergy status to narcotic agent; Z91.041 Radiographic dye allergy status; Z98.51 Tubal ligation status
CPT/HCPCS: 36415; 38222; 70450; 71045; 71046; 74176; 77012; 78582; 80048; 80053; 80074; 80076; 82274; 82607; 82728; 82746; 82962; 83540; 83550; 84439; 85007; 85025; 85027; 85045; 85384; 85610; 85730; 86308; 86644; 86645; 86663; 86664; 86703; 86738; 86747; 86850; 86900; 86901; 86920; 87040; 87205; 87529; 87641; 88184; 88185; 88237; 88305; 88313; 88341; 88342; 93005; 93306; 93970; 94640; 94760; 96372; 96374; 97162-GP; 97166-GO; 99152; 99285; 99285-25; A9540; A9558; J0692; J1956; J2250; J2270; J2543; J2930; J3010; J3420; J7613; J7620; J7644; P9016; P9035; Q0162; Q0163